=== PATIENT | male | born 1975 | race Hispanic/Latino ===

== ENCOUNTER 2019-12-17 17:59 | Inpatient (IN) | payer OTHER ==
[2019-12-17] MEDS ORDERED: ACETAMINOPHEN 325 MG TABLET ONE (18:48)
[2019-12-17] MEDS ORDERED: HYDROCODONE/APAP 7.5/325 MG TAB ONE (18:49)
[2019-12-17] MEDS ORDERED: NA CHLORIDE 0.9% 2,000 ML ONE (18:49)
[2019-12-17 19:44] LABS: Absolute Lymphocytes (CBC) 0.8 K/uL (0.7-4.9); Basophils % 0.3 % (0-1.3); Lymphocytes % 8.4 % (15.3-44.8); MPV 8.4 fL (7.6-11.3); RBC Red Blood Cell Count 5.81 M/uL (4.33-5.43)
[2019-12-17 19:47] LABS: BUN Blood Urea Nitrogen 10 mg/dL (7-18); Bicarbonate 24 mmol/L (21-32); Glucose Level 107 mg/dL (74-106); Potassium 3.3 mmol/L (3.5-5.1); Sodium Level 137 mmol/L (136-145)
[2019-12-17 19:48] LABS: Protime INR 1.23
[2019-12-17 19:55] LABS: ALT/SGPT 22 U/L (12-78); AST/SGOT 13 U/L (15-37); Albumin 3.6 g/dL (3.4-5.0); Alkaline Phosphatase 75 U/L (45-117); Bilirubin Direct 0.6 mg/dL (0-0.2); Bilirubin Total 1.7 mg/dL (0.2-1.0); Ferritin 335.8 ng/mL (26-388); Lipase 66 U/L (73-393); Protein, Total 7.6 g/dL (6.4-8.2); Troponin (Emerg Dept Use Only) < 0.02 ng/mL (0.0-0.045)
--- NOTE | 2019-12-17 20:26 | EDPHYS ---
Physician Documentation [facility] Name: Efren Burgess Age: 44 yrs Sex: Male : 1975 Arrival Date: 12/17/2019 Time: 18:01 Bed 17 Private MD: ED Physician Thiago Gomez HPI: 12/16 19:51 This 44 yrs old Male presents to ER via EMS with complaints of Shortness Of snw Breath. 19:51 The patient has shortness of breath at rest. Onset: The symptoms/episode began/occurred snw gradually, 1 day(s) ago, pt started running fever to 103 on Monday, had virtual appt with PCP and encouraged to be CoVid 19 tested, pt was tested at [facility] yesterday, no results yet. Pt became SOB and coughing today. Duration: The symptoms are continuous. Associated signs and symptoms: Pertinent positives: non-productive cough, fever, listlessness, fatigue, muscle aches. Severity of symptoms: At their worst the symptoms were moderate severe. The patient has not experienced similar symptoms in the past. as noted. Historical: - Allergies: 18:09 Strawberries; tw2 18:09 Kiwi (Actinidia Chinensis); tw2 - Home Meds: 18:13 Synjardy 5-1,000 mg oral tab 1 tab 2 times per day for Type 2 Diabetes Mellitus tw2 [Active]; 19:57 Tradjenta 5 mg oral tab 1 tab once daily [Active]; sg - PMHx: 19:57 Diabetes - NIDDM; sg - Immunization history:: Adult Immunizations. - Social history:: Smoking status: . ROS: 19:50 Eyes: Negative for injury, pain, redness, and discharge. snw 19:50 Neck: Negative for injury, pain, and swelling, Cardiovascular: Negative for chest pain, palpitations, and edema. 19:50 Abdomen/GI: Negative for abdominal pain, nausea, vomiting, diarrhea, and constipation, Back: Negative for injury and pain, : Negative for injury, bleeding, discharge, and swelling. 19:50 Skin: Negative for injury, rash, and discoloration. 19:50 Psych: Negative for depression, anxiety, suicide ideation, homicidal ideation, and hallucinations. 19:50 Constitutional: Positive for body aches, chills, fatigue, fever, malaise, poor PO intake. 19:50 ENT: Positive for loss of smell and taste per report. 19:50 Respiratory: Positive for cough, shortness of breath, at rest. 19:50 MS/extremity: Positive for generalized pain. 19:50 Neuro: Positive for headache. Exam: 19:47 Head/Face: Normocephalic, atraumatic. Eyes: Pupils equal round and reactive to light, snw extra-ocular motions intact. Lids and lashes normal. Conjunctiva and sclera are non-icteric and not injected. Cornea within normal limits. Periorbital areas with no swelling, redness, or edema. ENT: Nares patent. No nasal discharge, no septal abnormalities noted. Tympanic membranes are normal and external auditory canals are clear. Oropharynx with no redness, swelling, or masses, exudates, or evidence of obstruction, uvula midline. Mucous membranes moist. Neck: Trachea midline, no thyromegaly or masses palpated, and no cervical lymphadenopathy. Supple, full range of motion without nuchal rigidity, or vertebral point tenderness. No Meningismus. Chest/axilla: Normal chest wall appearance and motion. Nontender with no deformity. No lesions are appreciated. 19:47 Abdomen/GI: Soft, non-tender, with normal bowel sounds. No distension or tympany. No guarding or rebound. No evidence of tenderness throughout. Back: No spinal tenderness. No costovertebral tenderness. Full range of motion. 19:47 Constitutional: The patient appears awake, listless, obese, obviously ill, uncomfortable, rigors 19:47 Cardiovascular: Rate: tachycardic, Rhythm: regular, Pulses: no pulse deficits are appreciated, Heart sounds: normal, Edema: is not appreciated. 19:47 Respiratory: the patient does not display signs of respiratory distress, Respirations: shallow respirations, tachypnea, that is moderate, Breath sounds: + upper airway congestion. Respiratory rate: 26 cough and sob started today, SpO2 93-94% room air, O2 placed via N/C at 2L SpO2 97%. 19:47 Skin: Appearance: Color: normal in color, Temperature: hot, Moisture: dry, petechiae, not noted. 19:47 Neuro: listless with chills. Vital Signs: 18:15 BP 112 / 69; Pulse 106; Resp 24; Temp 103.0; Pulse Ox 96% on R/A; ls4 19:24 BP 119 / 76; Pulse 104; Resp 16; Temp 101.3(O); Pulse Ox 93% ; Pain 3/10; ls4 20:15 BP 118 / 77; Pulse 93; Resp 24; Pulse Ox 96% on 2 lpm NC; Pain 2/10; ls4 21:10 BP 104 / 70; Pulse 89; Resp 19; Pulse Ox 96% on 2 lpm NC; Pain 0/10; ls4 22:00 BP 127 / 82; Pulse 82; Resp 14; Temp 98.3; Pulse Ox 100% on R/A; Pain 3/10; ls4 23:00 BP 110 / 67; Pulse 86; Resp 16; Temp 98.6(O); Pulse Ox 96% on 2 lpm NC; Pain 3/10; ls4 19:24 2 liters applied increased to 97 per cent 4 MDM: 19:41 Patient medically screened. snw 20:26 Data reviewed: vital signs, nurses notes, lab test result(s), radiologic studies. Data snw interpreted: Pulse oximetry: on room air is 93 %. Interpretation: hypoxia. Plan: O2 by NC applied. Counseling: I had a detailed discussion with the patient and/or guardian regarding: lab results, radiology results, the need for further work-up and treatment in the hospital. Physician consultation: Stefano Khoury was called at 20:15, was contacted at 20:15, regarding admission, to the medical/surgical unit. and will see patient in ED, shortly. 12/16 18:38 Order name: COVID-19 [facility] 12/16 18:38 Order name: Flu; Complete Time: 20:04 [facility] 12/16 18:38 Order name: Strep; Complete Time: 19:41 [facility] 12/16 19:07 Order name: Blood Culture Adult (2) [facility] 12/16 19:07 Order name: C-Reactive Protein; Complete Time: 20:04 [facility] 12/16 19:07 Order name: D-Dimer; Complete Time: 20:21 [facility] 12/16 19:07 Order name: Ferritin; Complete Time: 20:04 [facility] 12/16 19:07 Order name: Lactate [facility] 12/16 19:07 Order name: LFT's; Complete Time: 20:04 [facility] 12/16 19:07 Order name: Lipase; Complete Time: 20:04 [facility] 12/16 19:07 Order name: Procalcitonin; Complete Time: 20:04 [facility] 12/16 19:07 Order name: PT-INR; Complete Time: 20:21 [facility] 12/16 19:07 Order name: Ptt, Activated; Complete Time: 20:21 [facility] 12/16 19:07 Order name: Troponin (emerg Dept Use Only); Complete Time: 20:04 [facility] 12/16 18:38 Order name: Document PUI#; Complete Time: 21:51 [facility] 12/16 18:38 Order name: Droplet/Contact Precautions; Complete Time: 21:51 [facility] 12/16 18:38 Order name: Labs collected and sent; Complete Time: 21:51 [facility] 12/16 18:38 Order name: Notify [facility] Dept [phone]/ ; Complete Time: 21:51 [facility] 12/16 18:38 Order name: O2 Per Protocol; Complete Time: 21:51 [facility] 12/16 19:07 Order name: CXR XRAY [facility] 12/16 19:07 Order name: EKG; Complete Time: 19:09 [facility] 12/16 19:07 Order name: Cardiac monitoring; Complete Time: 23:45 [facility] 12/16 19:15 Order name: CBC with Diff; Complete Time: 20:12 [facility] 12/16 19:15 Order name: Basic Metabolic Panel; Complete Time: 19:53 [facility] 12/16 19:41 Order name: Throat Culture [facility] 12/16 21:09 Order name: Urine Dipstick--Ancillary (enter results) 12/16 19:07 Order name: EKG - Nurse/Tech; Complete Time: 23:17 [facility] 12/16 19:07 Order name: O2 Per Protocol; Complete Time: 23:44 [facility] 12/16 19:07 Order name: O2 Sat Monitoring; Complete Time: 23:44 [facility] 12/16 19:07 Order name: Urine Dipstick-Ancillary (obtain specimen); Complete Time: 23:44 ls4 Administered Medications: 18:45 Drug: NS 0.9% 1000 ml Route: IV; Rate: 1 bolus; Site: left forearm; snw 20:00 Follow up: IV Status: Completed infusion; IV Intake: 1000ml ls4 18:55 Drug: [place] (7.5 mg-325 mg) 1 tabs Route: PO; snw 19:20 Follow up: Response: No adverse reaction; Marked relief of symptoms ls4 18:55 Drug: Tylenol 650 mg Route: PO; snw 19:20 Follow up: Response: No adverse reaction; Marked relief of symptoms ls4 19:36 Drug: NS 0.9% 1000 ml Route: IV; Rate: 1 bolus; Site: left forearm; snw 20:36 Follow up: IV Status: Completed infusion; IV Intake: 1000ml ls4 Disposition: 12/17 13:22 Co-signature as Attending Physician, Thiago Gomez MD I agree with the assessment and kdr plan of care. Disposition: 12/17/19 20:25 Hospitalization ordered by Stefano Khoury for Observation. Preliminary diagnosis are Fever presenting with conditions classified elsewhere, Shortness of breath, Dehydration. - Bed requested for Telemetry/MedSurg (observation). - Status is Observation. ls4 - Condition is Stable. - Problem is new. - Symptoms have worsened. Signatures: Dispatcher [employer] EDMS Chuy Solorzano RN RN sg Thiago Gomez MD MD kdr Chandni Hurd, SKETCH LINER-C SKETCH LINER-Csnw Maggie Toro, RN RN tl1 Bebe Holloway RN RN tw2 Kellie Cortez, RN RN ls4 Corrections: (The following items were deleted from the chart) 12/16 19:57 18:09 PMHx: Diabetes - IDDM; tw2 21:35 20:25 Hospitalization Ordered by Stefano Khoury for Observation. Preliminary diagnosis tl1 is Fever presenting with conditions classified elsewhere; Shortness of breath; Dehydration. Bed requested for Telemetry/MedSurg (observation). Status is Observation. Condition is Stable. Problem is new. Symptoms have worsened. snw 23:24 21:35 12/17/2019 20:25 Hospitalization Ordered by Stefano Khoury for Observation. ls4 Preliminary diagnosis is Fever presenting with conditions classified elsewhere; Shortness of breath; Dehydration. Bed requested for Telemetry/MedSurg (observation). Status is Observation. Condition is Stable. Problem is new. Symptoms have worsened. tl1
--- NOTE | 2019-12-17 20:26 | ER ---
Nurse's Notes [facility] Name: Efren Burgess Age: 44 yrs Sex: Male : 1975 Arrival Date: 12/17/2019 Time: 18:01 Bed 17 Private MD: Diagnosis: Fever presenting with conditions classified elsewhere;Shortness of breath;Dehydration Presentation: 12/16 18:01 Chief complaint: EMS states: pt from home has had cough, fever, shortness of breath and tw2 got tested Monday for covid, no results yet, he also reports that he has lost his sense of taste. Coronavirus screen: Surgical mask placed on patient. Patient moved to private room, placed in contact and droplet isolation with eye protection until further assessment. Patient reports a cough. Patient reports shortness of breath or difficulty breathing. Patient reports a measured and/or subjective temperature greater than 100.4F. Patient denies travel on a cruise ship or to a country the [facility] currently lists as an affected area. Patient denies contact with known and/or suspected case of COVID-19. Prior COVID test collected on: Monday, December. Ebola Screen: Patient denies travel to an Ebola-affected area in the 21 days before illness onset. Initial Sepsis Screen:. Risk Assessment: Do you want to hurt yourself or someone else? Patient reports no desire to harm self or others. Onset of symptoms was December 17, 2019. 18:01 Method Of Arrival: EMS: [facility] tw2 18:01 Acuity: [place] 1 ls4 18:01 Initial Sepsis Screen: Does the patient meet any 2 criteria? No. Patient's initial ls4 sepsis screen is negative. Does the patient have a suspected source of infection? No. Patient's initial sepsis screen is negative. Care prior to arrival: None. Glucose check: 138. Care prior to arrival: pt states he has been tired all day. Activity prior to arrival: None. 18:03 Chief complaint: EMS states: bgl was 138, pt hx of DM. tw2 18:10 Note pts spouse states he was test yesterday, Monday December 16, 2019 at [facility] tw2 and still no results back, they use [facility] for rx. Triage Assessment: 18:03 General: Appears in no apparent distress. uncomfortable, obese, Behavior is tw2 cooperative, appropriate for age. Pain: Denies pain. Respiratory: Reports shortness of breath at rest on exertion cough that is Onset: The symptoms/episode began/occurred Monday, the patient has mild shortness of breath. Historical: - Allergies: 18:09 Strawberries; tw2 18:09 Kiwi (Actinidia Chinensis); tw2 - Home Meds: 18:13 Synjardy 5-1,000 mg oral tab 1 tab 2 times per day for Type 2 Diabetes Mellitus tw2 [Active]; 19:57 Tradjenta 5 mg oral tab 1 tab once daily [Active]; sg - PMHx: 19:57 Diabetes - NIDDM; sg - Immunization history:: Adult Immunizations. - Social history:: Smoking status: . Screenin:05 Abuse screen: Denies threats or abuse. Denies injuries from another. Nutritional ls4 screening: No deficits noted. Tuberculosis screening: No symptoms or risk factors identified. Fall Risk None identified. Assessment: 18:00 Cardiovascular: Capillary refill < 3 seconds Patient's skin is warm and dry. Rhythm is ls4 regular. Respiratory: Breath sounds are clear bilaterally. GI: Abdomen is non-distended, obese, Bowel sounds present X 4 quads. 18:01 Respiratory: Airway is patent Respiratory effort is even, unlabored, Respiratory ls4 pattern is tachypnea. 18:01 Respiratory: the patient has moderate shortness of breath. ls4 18:03 General: Appears in no apparent distress. uncomfortable, Behavior is calm, cooperative, ls4 quiet. 19:00 Reassessment: Patient appears in no apparent distress at this time. Patient and/or ls4 family updated on plan of care and expected duration. Pain level reassessed. Patient is alert, oriented x 3, equal unlabored respirations, skin warm/dry/pink. Patient states symptoms have improved. 20:00 Reassessment: Patient appears in no apparent distress at this time. Patient and/or ls4 family updated on plan of care and expected duration. Pain level reassessed. Patient is alert, oriented x 3, equal unlabored respirations, skin warm/dry/pink. 21:00 Reassessment: Patient appears in no apparent distress at this time. Patient and/or ls4 family updated on plan of care and expected duration. Pain level reassessed. Patient is alert, oriented x 3, equal unlabored respirations, skin warm/dry/pink. 22:00 Reassessment: Patient appears in no apparent distress at this time. Patient and/or ls4 family updated on plan of care and expected duration. Pain level reassessed. Patient is alert, oriented x 3, equal unlabored respirations, skin warm/dry/pink. Vital Signs: 18:15 BP 112 / 69; Pulse 106; Resp 24; Temp 103.0; Pulse Ox 96% on R/A; ls4 19:24 BP 119 / 76; Pulse 104; Resp 16; Temp 101.3(O); Pulse Ox 93% ; Pain 3/10; ls4 20:15 BP 118 / 77; Pulse 93; Resp 24; Pulse Ox 96% on 2 lpm NC; Pain 2/10; ls4 21:10 BP 104 / 70; Pulse 89; Resp 19; Pulse Ox 96% on 2 lpm NC; Pain 0/10; ls4 22:00 BP 127 / 82; Pulse 82; Resp 14; Temp 98.3; Pulse Ox 100% on R/A; Pain 3/10; ls4 23:00 BP 110 / 67; Pulse 86; Resp 16; Temp 98.6(O); Pulse Ox 96% on 2 lpm NC; Pain 3/10; ls4 19:24 2 liters applied increased to 97 per cent ls4 ED Course: 18:00 Patient has correct armband on for positive identification. Bed in low position. Call ls4 light in reach. Side rails up X 1. quality assurance monitor body on. Pulse ox on. NIBP on. 18:00 Verbal reassurance given. ls4 18:01 Patient arrived in ED. tw2 18:03 Arm band placed on. tw2 18:09 Chandni Hurd FNP-C is PHCP. snw 18:09 Thiago Gomez MD is Attending Physician. snw 18:29 No apparent distress. Nurse Practitioner and/or Physician Plastic Press Operator to see patient. ls4 18:36 Kellie Cortez, SREE is Primary Nurse. ls4 19:00 Initial lab(s) drawn, by ED staff, sent to lab. Flu and/or RSV swab sent to lab. Strep ls4 swab sent to lab. CoVID SWAB CARRIED TO LAB IN COOLER BY CHAIR CAR ATTENDANT. 19:30 No provider procedures requiring assistance completed. Oxygen administration via nasal ls4 cannula \T\ 2L/min. 19:36 Triage completed. ls4 19:47 CXR XRAY In Process Unspecified. EDMS 20:24 Stefano Khoury is Hospitalizing Provider. snw 21:04 EKG done, by ED staff. ls4 23:01 No apparent distress. ls4 23:07 Patient admitted, IV remains in place. ls4 Administered Medications: 18:45 Drug: NS 0.9% 1000 ml Route: IV; Rate: 1 bolus; Site: left forearm; snw 20:00 Follow up: IV Status: Completed infusion; IV Intake: 1000ml ls4 18:55 Drug: [place] (7.5 mg-325 mg) 1 tabs Route: PO; snw 19:20 Follow up: Response: No adverse reaction; Marked relief of symptoms ls4 18:55 Drug: Tylenol 650 mg Route: PO; snw 19:20 Follow up: Response: No adverse reaction; Marked relief of symptoms ls4 19:36 Drug: NS 0.9% 1000 ml Route: IV; Rate: 1 bolus; Site: left forearm; snw 20:36 Follow up: IV Status: Completed infusion; IV Intake: 1000ml ls4 Intake: 20:00 IV: 1000ml; Total: 1000ml. ls4 20:36 IV: 1000ml; Total: 2000ml. ls4 Outcome: 20:25 Decision to Hospitalize by Provider. snw 23:03 Admitted to Tele accompanied by tech, room 413, Report called to SONIA BALBUENA ls4 23:03 Condition: stable 23:03 Instructed on the need for admit, Demonstrated understanding of follow-up care, PRAKASH CALLED AND NOTIFIED OF ADMISSION AND PT STATUS 23:24 Patient left the ED. ls4 Signatures: Dispatcher [employer] EDMS Chuy Solorzano RN SREE sg Chandni Hurd, ENDOCRINOLOGY PHYSICIAN-C ENDOCRINOLOGY PHYSICIAN-Csnw Bebe Holloway RN RN tw2 Kellie Cortez RN RN ls4 Corrections: (The following items were deleted from the chart) 19:24 19:15 BP 112 / 69; Pulse 106bpm; Resp 24bpm; Pulse Ox 96% RA; Temp 103.0F; ls4 ls4 19:41 19:38 Cardiovascular: Rhythm is sinus tachycardia ls4 ls4 19:41 19:38 Respiratory: Airway is patent Respiratory effort is even, unlabored, Respiratory ls4 pattern is tachypnea ls4 19:41 19:38 General: Appears in no apparent distress. uncomfortable, Behavior is calm, ls4 cooperative, quiet, ls4 19:57 18:09 PMHx: Diabetes - IDDM; tw2 sg 22:34 18:00 Reassessment: Patient appears in no apparent distress at this time. Patient ls4 and/or family updated on plan of care and expected duration. Pain level reassessed. Patient is alert, oriented x 3, equal unlabored respirations, skin warm/dry/pink. Patient states symptoms have improved. ls4 23:24 21:04 EKG done, by ED staff, reviewed by Chandni STONE ls4 ls4
--- NOTE | 2019-12-17 20:49 | RAD REPORT ---
EXAM DESCRIPTION: RAD - Chest Single View - 12/17/2019 7:46 pm CLINICAL HISTORY: COUGH COMPARISON: None TECHNIQUE: AP portable chest image was obtained 12/17/2019 7:46 pm . FINDINGS: Lung volumes are low. No acute lung parenchymal process. Heart and vasculature are normal. No measurable pleural effusion and no pneumothorax. No acute bony abnormality seen. No acute aortic findings suspected. IMPRESSION: No acute cardiopulmonary process.
--- NOTE | 2019-12-17 21:08 | P.HP ---
Certification for Inpatient Patient admitted to: Observation With expected LOS: <2 Midnights Practitioner: I am a practitioner with admitting privileges, knowledge of patient current condition, hospital course, and medical plan of care. Services: Services provided to patient in accordance with Admission requirements found in Title 42 Section 412.3 of the Code of Federal Regulations Patient History Date of Service: 12/17/19 Reason for admission: Fever and weakness History of Present Illness: 44-year-old gentleman with a history of diabetes mellitus type 2 presented to the ED with a complaint of fever of 5 days duration along with generalized body aches. Patient stated he started having nonproductive cough yesterday. He reports generalized weakness and body aches to the point he has been having difficulty with ambulation. He also reports poor oral intake. He denied any diarrhea or nausea or vomiting. He went to see his primary care physician will obtained Covid test, result is pending. Blood work in the ED is unremarkable, chest x-ray does not show any infiltrate. Patient generally weak. He is placed under observation for further management. Allergies No Known Allergies Allergy (Verified 12/17/19 23:25) Home Medications: Empagliflozin/Metformin HCl [Synjardy Xr 10-1,000 mg Tablet] 1 each PO DAILY 12/18/19 Linagliptin [Tradjenta] 5 mg PO DAILY 12/18/19 Levofloxacin [Levaquin] 500 mg PO DAILY #10 tablet 12/19/19 - Past Medical/Surgical History Diabetic: Yes -: Diabetes mellitus type 2 - Family History Mother -: Diabetes Father -: Hypertension, Diabetes - Social History Smoking Status: Never smoker Alcohol use: No CD- Drugs: No Place of Residence: Home Review of Systems Other: Except as documented, all other systems reviewed and negative. Physical Examination - Physical Exam General: Alert, In no apparent distress, Oriented x3 HEENT: Mucous membr. moist/pink, Sclerae nonicteric Neck: Supple, JVD not distended Respiratory: Clear to auscultation bilaterally, Normal air movement Cardiovascular: No edema, Regular rate/rhythm Capillary refill: <2 Seconds Gastrointestinal: Normal bowel sounds, Soft and benign, Non-distended, No tenderness Musculoskeletal: No swelling, No erythema Neurological: Normal speech, Normal strength at 5/5 x4 extr - Studies Laboratory Data (last 24 hrs) 12/17/19 18:50: Sodium 137, Potassium 3.3 L, BUN 10, Creatinine 0.72, Glucose 107 H 12/17/19 18:50: WBC 9.2, Hgb 16.0, Hct 48.0, Plt Count 223 12/17/19 18:50: PT 14.4 H, INR 1.23, APTT 32.8 12/17/19 18:50: Total Bilirubin 1.7 H, AST 13 L, ALT 22, Alkaline Phosphatase 75, Lipase 66 L Microbiology Data (last 24 hrs): 12/17/19 18:50 Nasopharnyx Influenza Type A Antigen Screen - Final 12/17/19 18:50 Nasopharnyx Influenza Type B Antigen Screen - Final 12/17/19 18:50 Throat Group A Streptococcus Rapid Screen - Final Assessment and Plan - Problems (Diagnosis) (1) Febrile illness, acute Status: Acute (2) Diabetes mellitus type 2 in obese Status: Acute (3) Hyperbilirubinemia Status: Acute - Plan Place under observation Supportive measures with IV fluids Antipyretics prn I suspect hyperbilirubinemia is likely secondary to hepatic steatosis. Blood cultures Droplet isolation Follow up Covid 19 test result. Supplemental oxygen as needed. - Advance Directives Does patient have a Living Will: No Does patient have a Durable POA for Healthcare: No
[2019-12-17 22:12] LABS: Urine Blood 1+ (NEG); Urine Glucose 2+ (NEG); Urine Protein NEGATIVE (NEG); Urine pH 6.5 (5.0-7.0)
[2019-12-17] MEDS ORDERED: ONDANSETRON 4 MG/2 ML VIAL IV PRN (23:25)
[2019-12-17] MEDS: NA CHLORIDE 0.9% 1,000 ML IV SCH (23:38)
[2019-12-17 23:48] VITALS: BMI 39.4
[2019-12-18] MEDS ORDERED: POTASSIUM 25 MEQ EFFERV TAB PO ONE ×2 (00:49→05:30)
[2019-12-18] MEDS: ACETAMINOPHEN 500 MG TAB PO PRN ×3 (01:15→16:24)
[2019-12-18 04:22] LABS: Absolute Lymphocytes (CBC) 1.1 K/uL (0.7-4.9); Basophils % 0.3 % (0-1.3); Hematocrit 42.6 % (39.6-49.0); Lymphocytes % 14.8 % (15.3-44.8); MPV 8.5 fL (7.6-11.3); RBC Red Blood Cell Count 5.16 M/uL (4.33-5.43)
[2019-12-18 04:49] LABS: ALT/SGPT 21 U/L (12-78); AST/SGOT 13 U/L (15-37); Alkaline Phosphatase 66 U/L (45-117); BUN Blood Urea Nitrogen 11 mg/dL (7-18); Bicarbonate 24 mmol/L (21-32); Bilirubin Total 1.3 mg/dL (0.2-1.0); Glucose Level 102 mg/dL (74-106); Magnesium 1.9 mg/dL (1.8-2.4); Phosphorus 1.4 mg/dL (2.5-4.9); Potassium 3.7 mmol/L (3.5-5.1); Protein, Total 6.6 g/dL (6.4-8.2); Sodium Level 138 mmol/L (136-145); Thyroid Stimulating Hormone 0.613 uIU/mL (0.360-3.740)
[2019-12-18] MEDS: POTASS/SODIUM PHOSPHATE 1 PKT POWD.PACK PO SCH ×3 (05:28→07:23)
[2019-12-18 05:31] LABS: Urine Appearance CLEAR; Urine Blood NEGATIVE (NEG); Urine Color YELLOW; Urine Glucose 3+ (NEG); Urine Protein NEGATIVE (NEG); Urine Specific Gravity >=1.030 (1.005-1.030)
[2019-12-18 05:32] LABS: Urine Microscopic Reflex NO UMIC
[2019-12-18 05:37] LABS: Urine Bilirubin 1+ (NEG)
[2019-12-18] MEDS: NA CHLORIDE 0.9% 1,000 ML IV SCH ×2 (06:19→16:24)
--- NOTE | 2019-12-18 06:53 | EKG ---
Test Date: 2019-12-17 Test Time: 21:04:08 Field Research Associate: HARJEET MEASUREMENT RESULTS: Intervals: Rate: 86 WV: 140 QRSD: 86 QT: 408 QTc: 488 [place]: P: 27 WV: 140 QRS: -4 T: 6 INTERPRETIVE STATEMENTS: Normal sinus rhythm Prolonged QT Abnormal ECG No previous ECG available for comparison Electronically Signed On 12-18-19 06:53:12 CDT by Karthik Decker
[2019-12-18] MEDS: ENOXAPARIN 40 MG/0.4 ML SQ SCH (07:23)
[2019-12-18] MEDS: INSULIN -REGULAR HUMAN 50 UNIT/0.5 ML ML SQ SCH ×4 (07:30→20:32)
[2019-12-18] MEDS: metroNIDAZOLE 500 MG TABLET PO SCH ×2 (12:36→20:32)
[2019-12-18] MEDS: CEFTRIAXONE/SWI 1gm 1 GM/10 ML SYR IV SCH (12:36)
--- NOTE | 2019-12-18 14:52 | P.PN ---
Subjective Date of Service: 12/18/19 Chief Complaint: Fever and weakness Subjective: No new changes, C/O voiced Physical Examination - Vital Signs Temperature: 98.7 F Blood Pressure: 131/76 Pulse: 87 Respirations: 18 Pulse Ox (%): 97 - Physical Exam General: Alert, In no apparent distress, Oriented x3 HEENT: Atraumatic, Normocephalic Neck: Supple, 2+ carotid pulse no bruit, JVD not distended Respiratory: Clear to auscultation bilaterally, Normal air movement Cardiovascular: No edema, Normal pulses, Regular rate/rhythm, Normal S1 S2 Gastrointestinal: Normal bowel sounds, Soft and benign Musculoskeletal: No clubbing, No swelling - Studies Laboratory Data (last 24 hrs) 12/18/19 03:23: Sodium 138, Potassium 3.7, BUN 11, Creatinine 0.56, Glucose 102, Phosphorus 1.4 L, Magnesium 1.9, Total Bilirubin 1.3 H, AST 13 L, ALT 21, Alkaline Phosphatase 66 12/18/19 03:23: WBC 7.4 D, Hgb 14.3, Hct 42.6, Plt Count 194 12/17/19 18:50: Sodium 137, Potassium 3.3 L, BUN 10, Creatinine 0.72, Glucose 107 H 12/17/19 18:50: WBC 9.2, Hgb 16.0, Hct 48.0, Plt Count 223 12/17/19 18:50: PT 14.4 H, INR 1.23, APTT 32.8 12/17/19 18:50: Total Bilirubin 1.7 H, AST 13 L, ALT 22, Alkaline Phosphatase 75, Lipase 66 L Microbiology Data (last 24 hrs): 12/17/19 18:50 Nasopharnyx Coronavirus COVID-19 PCR - Final 12/17/19 18:50 Nasopharnyx Influenza Type A Antigen Screen - Final 12/17/19 18:50 Nasopharnyx Influenza Type B Antigen Screen - Final 12/17/19 18:50 Throat Group A Streptococcus Rapid Screen - Final Assessment And Plan - Current Problems (Diagnosis) (1) Viral syndrome Current Visit: Yes Status: Acute (2) Diabetes mellitus type 2 in obese Current Visit: Yes Status: Acute (3) Hyperbilirubinemia Current Visit: Yes Status: Acute Physician Review: Patient Assessed, Agree with Above Assessment and Plan Physician Review Additional Text: # shortness of breath-likely related to viral pneumonia - covid 19 testing negative Start empirical antibiotics with Rocephin Can Dc droplet isolation. Hyperbilirubinemia-improving, no need for gallbladder ultrasound Continue to monitor level, now down to 1.3 total Febrile Illness -likely due to viral syndrome Continue antipruritics p.r.n. DVT prophylaxis-subcutaneous heparin Dispo possible in next 24 hr if AFebrile Time Spent Managing PTS Care (In Minutes): 30
[2019-12-18 18:46] LABS: Urine Appearance CLOUDY; Urine Bilirubin NEGATIVE (NEG); Urine Blood 3+ (NEG); Urine Color YELLOW; Urine Glucose 2+ (NEG); Urine Protein NEGATIVE (NEG); Urine Specific Gravity <=1.005 (1.005-1.030)
[2019-12-18 19:04] LABS: Urine Microscopic Reflex ORDER UMIC
[2019-12-18 20:10] LABS: Urine Bacteria <20 /HPF (NONE SEEN); Urine Culture Reflex Order NOT NEEDED; Urine RBC <5 /HPF (NONE SEEN)
[2019-12-19] MEDS: ACETAMINOPHEN 500 MG TAB PO PRN (01:15)
[2019-12-19] MEDS: NA CHLORIDE 0.9% 1,000 ML IV SCH ×3 (01:16→12:38)
[2019-12-19 04:45] LABS: Absolute Lymphocytes (CBC) 1.5 K/uL (0.7-4.9); Basophils % 0.5 % (0-1.3); Hematocrit 41.8 % (39.6-49.0); Lymphocytes % 25.1 % (15.3-44.8); RBC Red Blood Cell Count 5.11 M/uL (4.33-5.43)
[2019-12-19 04:58] LABS: ALT/SGPT 25 U/L (12-78); AST/SGOT 16 U/L (15-37); Albumin 2.9 g/dL (3.4-5.0); Alkaline Phosphatase 64 U/L (45-117); BUN Blood Urea Nitrogen 8 mg/dL (7-18); Bicarbonate 25 mmol/L (21-32); Glucose Level 92 mg/dL (74-106); Phosphorus 1.9 mg/dL (2.5-4.9); Potassium 3.5 mmol/L (3.5-5.1); Protein, Total 6.2 g/dL (6.4-8.2); Sodium Level 138 mmol/L (136-145)
[2019-12-19 05:27] LABS: Blood Morphology Comment NOT SEEN (NOT SEEN); Platelet Estimate ADEQ
[2019-12-19] MEDS: INSULIN -REGULAR HUMAN 50 UNIT/0.5 ML ML SQ SCH ×2 (07:30→11:30)
[2019-12-19 08:17] VITALS: O2SAT 95
[2019-12-19] MEDS ORDERED: POTASSIUM 25 MEQ EFFERV TAB PO ONE (09:00)
[2019-12-19] MEDS: POTASS/SODIUM PHOSPHATE 1 PKT POWD.PACK PO SCH ×3 (09:38→10:25)
[2019-12-19] MEDS: ENOXAPARIN 40 MG/0.4 ML SQ SCH (09:40)
[2019-12-19] MEDS: metroNIDAZOLE 500 MG TABLET PO SCH ×2 (09:40→13:53)
[2019-12-19] MEDS: CEFTRIAXONE/SWI 1gm 1 GM/10 ML SYR IV SCH (09:40)
--- NOTE | 2019-12-19 15:12 | P.DS ---
Admission Date: 12/18/19 Discharge Date: 12/19/19 Disposition: ROUTINE DISCHARGE Discharge Condition: FAIR Reason for Admission: Fever and weakness - Problems (1) Viral syndrome Current Visit: Yes Status: Acute (2) Diabetes mellitus type 2 in obese Current Visit: Yes Status: Acute (3) Hyperbilirubinemia Current Visit: Yes Status: Acute Brief History of Present Illness: History of Present Illness: 44-year-old gentleman with a history of diabetes mellitus type 2 presented to the ED with a complaint of fever of 5 days duration along with generalized body aches. Patient stated he started having nonproductive cough yesterday. He reports generalized weakness and body aches to the point he has been having difficulty with ambulation. He also reports poor oral intake. He denied any d iarrhea or nausea or vomiting. He went to see his primary care physician will obtained Covid test, result is pending. Blood work in the ED is unremarkable, chest x-ray does not show any infiltrate. Patient generally weak. He is placed under observation for further management. - Past Medical/Surgical History Diabetic: Yes -: Diabetes mellitus type 2 - Family History Mother -: Diabetes - Social History Smoking Status: Never smoker Alcohol use: No CD- Drugs: No Place of Residence: Home Hospital Course: patient admitted for fever , chills . He was ruled out for Covid infection with negative testing . He was noted with mild elevated bilirubin to 1.7 but improved with hydration to 1.3 . He developed passage of dark urine that spontaneously resolved . UA shows leucoyturia and cx obtained. Patient fever started to improved with empirical anbtitoics use . He was diagnosed with UTI and started on levaquin now . UTI may be due to DM hx . He is expected to follow with his PCP and may need urology eval if recurrent UTI in the future Vital Signs/Physical Exam: Temp Pulse Resp BP Pulse Ox 97.5 F 81 17 130/75 97 12/19/19 12:00 12/19/19 12:00 12/19/19 12:00 12/19/19 12:12/19/19 12:00 General: Alert, In no apparent distress, Oriented x3 HEENT: Atraumatic, Normocephalic, PERRLA Neck: 2+ carotid pulse no bruit, JVD not distended Respiratory: Clear to auscultation bilaterally, Normal air movement Gastrointestinal: Normal bowel sounds, Soft and benign, Non-distended Laboratory Data at Discharge: WBC 6.1 K/uL (4.3-10.9) D 12/19/19 04:25 Hgb 14.3 g/dL (13.6-17.9) 12/19/19 04:25 Hct 41.8 % (39.6-49.0) 12/19/19 04:25 Plt Count 202 K/uL (152-406) 12/19/19 04:25 PT 14.4 SECONDS (9.5-12.5) H 12/17/19 18:50 INR 1.23 12/17/19 18:50 APTT 32.8 SECONDS (24.3-36.9) 12/17/19 18:50 Sodium 138 mmol/L (136-145) 12/19/19 04:25 Potassium 3.5 mmol/L (3.5-5.1) 12/19/19 04:25 BUN 8 mg/dL (7-18) 12/19/19 04:25 Creatinine 0.61 mg/dL (0.55-1.3) 12/19/19 04:25 Glucose 92 mg/dL (74-106) 12/19/19 04:25 Phosphorus 1.9 mg/dL (2.5-4.9) L 12/19/19 04:25 Magnesium 1.9 mg/dL (1.8-2.4) 12/18/19 15:55 Total Bilirubin 1.0 mg/dL (0.2-1.0) 12/19/19 04:25 AST 16 U/L (15-37) 12/19/19 04:25 ALT 25 U/L (12-78) 12/19/19 04:25 Alkaline Phosphatase 64 U/L (45-117) 12/19/19 04:25 Lipase 66 U/L (73-393) L 12/17/19 18:50 Home Medications: Empagliflozin/Metformin HCl [Synjardy Xr 10-1,000 mg Tablet] 1 each PO DAILY 12/18/19 Linagliptin [Tradjenta] 5 mg PO DAILY 12/18/19 Levofloxacin [Levaquin] 500 mg PO DAILY #10 tablet 12/19/19 New Medications: Levofloxacin [Levaquin] 500 mg PO DAILY #10 tablet Patient Discharge Instructions: - follow up with your PCP in 5-7 days. - You ma y need imaging of your urinary tract if persistent symptoms. - Return to the ER if recurrent fever Diet: ADA Activity: Ad duke Time spent managing pt's care (in minutes): 35
[2019-12-19 17:24] VITALS: BP 126/67; TEMP 97.1
== END 2019-12-19 16:29 | disposition home or self-care (01) | DRG 690 ==
LOC: ER 17:59 → ERHOLD 21:10 → 4TH 22:33 → OBSVTOIN 12-18 09:39 → 4TH 12-18 11:57 → 2ND 12-18 17:50
PROVIDERS: ADMIT Internal Medicine; ATTEND Internal Medicine
PROC: 8E0ZXY6 Isolation (ICD-10-PCS; principal; 2019-12-18)
DX: N39.0 Urinary tract infection, site not specified (principal); E11.9 Type 2 diabetes mellitus without complications; E80.6 Other disorders of bilirubin metabolism; E66.9 Obesity, unspecified; B34.9 Viral infection, unspecified; R05 Cough; R50.9 Fever, unspecified; R06.02 Shortness of breath; Z68.39 Body mass index [BMI] 39.0-39.9, adult; Z79.84 Long term (current) use of oral hypoglycemic drugs; Z20.828 Contact with and (suspected) exposure to other viral communicable diseases; Z79.899 Other long term (current) drug therapy
CPT/HCPCS: 36415; 71045; 80048; 80053; 80076; 81003; 81015; 82728; 82947; 83605; 83690; 83735; 84100; 84145; 84443; 84484; 85025; 85379; 85610; 85730; 86140; 87040; 87070; 87081; 87086; 87088; 87804; 93005; 96360; 96361; 99291; 99292; G0378; J0696; J1650; J7030; U0002

== ENCOUNTER 2021-12-10 12:54 | Emergency (ER) | payer OTHER ==
--- OUTSIDE RECORDS SUMMARY | 2021-12-10 12:58 | XMS REPORT | Continuity of Care Document ---
:1975 Author Organization [facility] t Address [address] [place] [address] Care Team Providers Name Role Phone Love Saumels MD Primary Care Physician Chino Castillo MD Attending Clinician Love Samuels MD Attending Clinician Mor Petersen MD Attending Clinician Jose Guadalupe CUNHA Attending Clinician MADDIE Attending Clinician Unavailable Donavon REGALADO Attending Clinician Tian MONIQUE R Attending Clinician Unavailable MD MOR PETERSEN Attending Clinician Unavailable ONEIL Attending Clinician Unavailable Martha Stover Attending Clinician Doctor Unassigned, Name Attending Clinician Unavailable MARLEN Admitting Clinician Unavailable MD MOR PETERSEN Admitting Clinician Unavailable Payers Payer Name Policy Type Policy Number Effective Date Expiration Date S ource Problems Condition Condition Condition Status Onset Resolution Last Treating Co mments Source Name Details Category Date Date Treatment Clinician Date Plantar Plantar Disease Active Methodi fasciitis, fasciitis, 9- st left left 00:00: Hospita 00 l Abnormal Abnormal Disease Active Metho di urinalysis urinalysis 09-10 00:00: Hospita 00 l 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 09-10 00:00: Hospita 00 l History of History of Disease Active M ethodi Fileomn-en-Y Filemon-en-Y 1-04 st gastric gastric 00:00: Hospita bypass bypass 00 l Class 3 Class 3 Disease Active Methodi severe severe 01-13 st obesity obesity 00:00: Hospita due to due to 00 l excess excess calories calories with with serious serious comorbidit comorbidit y and body y and body mass index mass index (BMI) of (BMI) of 40.0 to 40.0 to 44.9 in 44.9 in adult adult SUHAIL SUHAIL Disease Active Methodi (obstructi (obstructi 01-13 st ve sleep ve sleep 00:00: Hospit a apnea) apnea) 00 l Pyelonephr Pyelonephr Disease Active M ethodi itis itis 01-13 st 00:00: Hospita 00 l 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 [address] 0 [address] mellitus mellitus 00:00: Hospit a with with 00 l hyperglyce hyperglyce dirk, dirk, without without long-term long-term current current use of use of insulin insulin Muscle Muscle Disease Active 2017-07 Methodi strain strain 2-17 st 00:00: Hospita 00 l Hyperlipid Hyperlipid Disease Recurre Methodi emia emia nce st Hospita l No known No known Disease Unive rs active active ity of problems problems [facility] Allergies, Adverse Reactions, Alerts Allergy Allergy Status Severity Reaction(s) Onset Inactive Treating Comm ents Source Name Type Date Date Clinician Marika Robertson Active Other (See 2019-07 Urine Me thodi chalinon ty to Comments) 0-[address] adverse 00:00: Hospita reaction 00 l s to drug Metformi Propensi Active GI Method i n ty to Intolerance 01-13 st adverse 00:00: Hospita reaction 00 l s to drug Family History Family Member Diagnosis Comments Start Date Stop Date Source Natural father Diabetes [facility] Natural [facility] Natural mother Diabetes [facility] Social History Social Habit Start Date Stop Date Quantity Comments Source History SDOH Religion Alcohol Frequency Hospita l History SDOH Religion Alcohol Std Hospital Drinks History SDOH Religion Alcohol Binge Hospital Alcohol intake 2021-04-06 2021-04-06 Ex-drinker Religion 00:00:00 00:00:00 (finding) Hospital Alcohol Comment 2020-06-30 2020-06-30 rarely Religion 00:00:00 00:00:00 Hospital Tobacco use and 2018-06-25 2018-06-25 Smokeless tobacco Me [facility]odist exposure 00:00:00 00:00:00 non-user Hospital Sex Assigned At [birth year] FARIBA [place] 00:[facility]:00 [facility]00 [facility] Smoking Status Start Date Stop Date Source Never smoked tobacco Religion H ospital Medications Ordered Filled Start Stop Current Ordering Indication Dosage Frequency Signature Comments Components Source Medication Medication Date Date Medication? Clinician (SIG) Name Name omeprazole 2020- No 40mg QD Take 40 mg Methodi (PriLOSEC) 04-[address] 40 MG 13:23: 00:00 daily. Hospita capsule 41 :00 l ursodioL 2020- No 300mg Q.5D Take 300 Met hodi (ACTIGALL) 04-[address] 300 mg 13:23: 00:00 mouth 2 Hospita capsule 41 :00 (two) l times a day. omeprazole No 40mg QD Take 40 mg Methodi (PriLOSEC) 04-[address] 40 MG 13:23: 00:00 daily. Hospita capsule 41 :00 l ursodioL 2020- No 300mg Q.5D Take 300 Met hodi (ACTIGALL) 04-[address] 300 mg 13:23: 00:00 mouth 2 Hospita capsule 41 :00 (two) l times a day. ergocalcife 0 Yes Method i rol 04-04 st (VITAMIN 00:00: Hospita D2) 50,000 00 l unit capsule ergocalcife 2020-0 Yes Method i rol 04-04 st (VITAMIN 00:00: Hospita D2) 50,000 00 l unit capsule multivit-mi 0 Yes Q.5D Take by Met hodi n/iron/foli 04-[address] c acid/K 14:33: (two) Hospita (BARIATRIC 44 times a l MULTIVITAMI day. NS ORAL) CALCIUM Yes Take by Methodi CITRATE 04-[address] ORAL 14:33: Hospita 44 l multivit-mi 2020-0 Yes Q.5D Take by Met hodi n/iron/foli 9-[address] c acid/K 14:33: (two) Hospita (BARIATRIC 44 times a l MULTIVITAMI day. NS ORAL) CALCIUM Yes Take by Methodi CITRATE 04-[address] ORAL 14:33: Hospita 44 l predniSONE 2020- No [id number] Take 2 Methodi (DELTASONE) 04-[address] 10 mg 00:00: 04:59 (20 mg Hospita tablet 00 :00 total) by l mouth daily for 7 days, THEN 1 tablet (10 mg total) daily for 7 days. predniSONE 2020- No [id number] Take 2 Methodi (DELTASONE) 04-[id number] 10 mg 00:00: 04:59 (20 mg Hospita tablet 00 :00 total) by l mouth daily for 7 days, THEN 1 tablet (10 mg total) daily for 7 days. Rhofade 1 % Yes Method i cream 03-05 st 00:00: Hospita 00 l Rhofade 1 % Yes Method i cream 03-05 st 00:00: Hospita 00 l ondansetron 2019-07- No 4mg Q6H Take 1 Met hodi (ZOFRAN) 4 08-23 tablet (4 st MG tablet 00:00: 00:00 mg total) Ho spita 00 :00 by mouth l every 6 (six) hours as needed for nausea or vomiting. ondansetron 2019-07 No 4mg Q6H Take 1 Met hodi (ZOFRAN) 4 08-23 tablet (4 st MG tablet 00:00: 00:00 mg total) Ho spita 00 :00 by mouth l every 6 (six) hours as needed for nausea or vomiting. omeprazole 2019-07- No 40mg QD Take 1 Meth zaria (PriLOSEC) 08-[address] 40 MG 00:00: 04:59 (40 mg Hospita capsule 00 :00 total) by l mouth daily for 180 days. ursodioL 2019-07- No 300mg Q.5D Take 1 Metho di (ACTIGALL) 08-[address] 300 mg 00:00: 04:59 (300 mg Hospita capsule 00 :00 total) by l mouth 2 (two) times a day for 180 days. omeprazole 2019-07 No 40mg QD Take 1 Meth zaria (PriLOSEC) 08-[address] 40 MG 00:00: 04:59 (40 mg Hospita capsule 00 :00 total) by l mouth daily for 180 days. ursodioL 2019-07 No 300mg Q.5D Take 1 Metho di (ACTIGALL) 08-[address] 300 mg 00:00: 04:59 (300 mg Hospita capsule 00 :00 total) by l mouth 2 (two) times a day for 180 days. amoxicillin Yes [id number] 1{tbl} Take 1 Univers -clavulanat 5-15 tablet by ity of e 00:00: mouth 2 [place] (AUGMENTIN) 00 (two) Medical 875-125 mg times Branch per tablet daily. amoxicillin Yes [id number] 1{tbl} Take 1 Univers -clavulanat 5-15 tablet by ity of e 00:00: mouth 2 [place] (AUGMENTIN) 00 (two) Medical 875-125 mg times Branch per tablet daily. amoxicillin Yes [id number] 1{tbl} Take 1 Univers -clavulanat 5-15 tablet by ity of e 00:00: mouth 2 [place] (AUGMENTIN) 00 (two) Medical 875-125 mg times Branch per tablet daily. amoxicillin Yes [id number] 1{tbl} Take 1 Univers -clavulanat 5-15 tablet by ity of e 00:00: mouth 2 [place] (AUGMENTIN) 00 (two) Medical 875-125 mg times Branch per tablet daily. Immunizations Ordered Immunization Filled Immunization Date Status Commen ts Source Name Name FLUCELVAX QUAD PF 2021-04-[address] 00:00:00 Hospital FLUCELVAX QUAD PF 2021-04-[address] 00:00:00 [facility] JENNY COVID-19 AD26 2020-12-22 Completed Met hodist VACCINATION 00:00:00 [facility] JENNY COVID-19 AD26 2020-12-22 Completed Met hodist VACCINATION 00:00:00 [facility] Tdap 2020-04-15 Completed Religion 00:00:00 [facility] FLUBLOK QUAD PF 2020-04-15 Completed Religion 00:00:00 Hospital Pneumococcal 2020-04-15 Completed Religion Polysaccharide 00:00:00 Hospital Tdap 2020-04-15 Completed Religion 00:00:00 Hospital MIGUEL QUAD PF 2020-04-15 Completed Religion 00:00:00 Hospital Pneumococcal 2020-04-15 Completed Religion Polysaccharide 00:00:00 [facility] KESHAV QUAD PF 2019-04-08 Completed Religion 00:00:00 Hospital KESHAV QUAD PF 2019-04-08 Completed Religion 00:00:00 Hospital Vital Signs Vital Name Observation Time Observation Value Comments Source Systolic blood 2019-03-12 16:03:00 128 mm[Hg] Univer sity of pressure [facility] Diastolic blood 2019-03-12 16:03:00 82 mm[Hg] Unive rsity [facility] Heart rate 2019-03-12 16:03:00 115 /min [facility] Body temperature 2019-03-12 16:03:00 36.72 Aparna [facility] Respiratory rate 2019-03-12 16:03:00 18 /min [facility] Body height 2019-03-12 16:03:00 180.3 cm [facility] Body weight 2019-03-12 16:03:00 125.845 kg [facility] BMI 2019-03-12 16:03:00 38.71 kg/m2 [facility] Oxygen saturation in 2019-03-12 16:03:00 93 /min [facility] blood by [facility] Pulse oximetry [place] Body height 2021-04-06 18:21:00 175.3 cm [facility] Body weight 2021-04-06 18:21:00 107.956 kg [facility] BMI 2021-04-06 18:21:00 35.15 kg/m2 [facility] Systolic blood 2021-04-02 19:32:00 120 mm[Hg] Method ist [facility] pressure Diastolic blood 2021-04-02 19:32:00 85 mm[Hg] [facility] pressure Heart rate 2021-04-02 19:32:00 77 /min [facility] Body temperature 2021-04-02 19:32:00 36.61 Aparna Meth odist [facility] Respiratory rate 2021-04-02 19:32:00 20 /min [facility] Oxygen saturation in 2021-04-02 19:32:00 97 /min [facility] Arterial blood by Pulse oximetry Procedures Procedure Date / Time Performing Clinician Source Performed COMPREHENSIVE METABOLIC 2021-05-28 14:17:00 [facility] PANEL LIPID PANEL 2021-05-28 14:17:00 [facility] TOTAL IRON BINDING 2021-05-28 14:17:00 [facility] CAPACITY T4, FREE 2021-05-28 14:17:00 [facility] THYROID STIMULATING 2021-05-28 14:17:00 [facility] HORMONE HEMOGLOBIN A1C 2021-05-28 14:17:00 [facility] PARATHYROID HORMONE 2021-05-28 14:17:00 [facility] CBC WITH PLATELET AND 2021-05-28 14:17:00 [facility] DIFFERENTIAL VITAMIN A LEVEL, PLASMA OR 2021-05-28 14:17:00 [facility] SERUM VITAMIN B12 LEVEL 2021-05-28 14:17:00 [facility] VITAMIN D 25 HYDROXY LEVEL 2021-05-28 14:17:00 [facility] COPPER LEVEL, SERUM 2021-05-28 14:17:00 [facility] FOLATE LEVEL 2021-05-28 14:17:00 [facility] FERRITIN LEVEL 2021-05-28 14:17:00 [facility] VITAMIN B1 LEVEL, WHOLE 2021-05-28 14:17:00 [facility] BLOOD ZINC LEVEL, SERUM 2021-05-28 14:17:00 [facility] T3 2021-05-28 14:17:00 [facility] XR CALCANEUS 2+ VW LEFT 2021-04-02 21:35:00 [facility] CARLINE SCRN,IFA,REF 2021-04-02 20:46:00 [facility] TITER/PAT,REF,MPLX 11 AB CASCADE W/IDENTRA URIC ACID LEVEL 2021-04-02 20:46:00 [facility] SEDIMENTATION RATE 2021-04-02 20:46:00 [facility] CBC WITH PLATELET AND 2021-04-02 20:46:00 [facility] DIFFERENTIAL C-REACTIVE PROTEIN 2021-04-02 20:46:00 [facility] FLUCELVAX QUAD PF (0.5ML 2021-04-02 20:43:00 [facility] SYRINGE) COMPREHENSIVE METABOLIC 2020-12-11 12:51:00 [facility] PANEL LIPID PANEL 2020-12-11 12:51:00 [facility] TOTAL IRON BINDING 2020-12-11 12:51:00 [facility] CAPACITY T4, FREE 2020-12-11 12:51:00 [facility] THYROID STIMULATING 2020-12-11 12:51:00 [facility] HORMONE HEMOGLOBIN A1C 2020-12-11 12:51:00 [facility] PARATHYROID HORMONE 2020-12-11 12:51:00 [facility] CBC WITH PLATELET AND 2020-12-11 12:51:00 [facility] DIFFERENTIAL VITAMIN A LEVEL, PLASMA OR 2020-12-11 12:51:00 [facility] SERUM VITAMIN B12 LEVEL 2020-12-11 12:51:00 [facility] VITAMIN D 25 HYDROXY LEVEL 2020-12-11 12:51:00 [facility] COPPER LEVEL, SERUM 2020-12-11 12:51:00 [facility] FOLATE LEVEL 2020-12-11 12:51:00 [facility] FERRITIN LEVEL 2020-12-11 12:51:00 [facility] VITAMIN B1 LEVEL, WHOLE 2020-12-11 12:51:00 [facility] BLOOD ZINC LEVEL, SERUM 2020-12-11 12:51:00 [facility] T3 2020-12-11 12:51:00 [facility] COMPREHENSIVE METABOLIC 2020-09-28 13:48:00 [facility] PANEL LIPID PANEL 2020-09-28 13:48:00 [facility] TOTAL IRON BINDING 2020-09-28 13:48:00 [facility] CAPACITY T4, FREE 2020-09-28 13:48:00 [facility] THYROID STIMULATING 2020-09-28 13:48:00 [facility] HORMONE HEMOGLOBIN A1C 2020-09-28 13:48:00 [facility] PARATHYROID HORMONE 2020-09-28 13:48:00 [facility] CBC WITH PLATELET AND 2020-09-28 13:48:00 [facility] DIFFERENTIAL VITAMIN A LEVEL, PLASMA OR 2020-09-28 13:48:00 [facility] SERUM VITAMIN B12 LEVEL 2020-09-28 13:48:00 [facility] VITAMIN D 25 HYDROXY LEVEL 2020-09-28 13:48:00 [facility] COPPER LEVEL, SERUM 2020-09-28 13:48:00 [facility] FOLATE LEVEL 2020-09-28 13:48:00 [facility] FERRITIN LEVEL 2020-09-28 13:48:00 [facility] VITAMIN B1 LEVEL, WHOLE 2020-09-28 13:48:00 [facility] BLOOD ZINC LEVEL, SERUM 2020-09-28 13:48:00 [facility] T3 2020-09-28 13:48:00 [facility] REFLEXIVE URINE CULTURE 2020-09-10 16:10:00 Davi Raphael [facility] URINALYSIS, COMPLETE, WITH 2020-09-10 16:10:00 Alejandro Raphael [facility] REFLEX TO CULTURE NO SHOW OR MISSED 2019-03-12 15:40:03 Doctor Unassigned, [facility] APPOINTMENT POLICY [place] [facility] ACKNOWLEDGEMENT Plan of Care Planned Activity Planned Date Details Comments Source Future Scheduled 2021-08-10 Hepatitis C screening [facility] Test 23:46:52 (procedure) [code = 754333919] Future Scheduled 2021-08-10 COVID-19 VACCINE (2 - [facility] Hospital Test 23:46:52 Booster for Jenny series) [code = COVID-19 VACCINE (2 - Booster for Jenny series)] Future Scheduled 2021-08-10 DIABETIC FOOT EXAM [facility] Hospital Test 23:46:52 [code = DIABETIC FOOT EXAM] Future Scheduled 2021-08-10 URINE MICROALBUMIN [facility] Hospital Test 23:46:52 [code = URINE MICROALBUMIN] Future Scheduled 2021-08-10 DIABETES: RETINAL EYE Me [facility] Hospital Test 23:46:52 EXAM [code = DIABETES: RETINAL EYE EXAM] Future Scheduled 2021-08-10 Hepatitis C screening [facility] Test 23:46:52 (procedure) [code = 666500619] Future Scheduled 2021-08-10 COVID-19 VACCINE (2 - Me [facility] Hospital Test 23:46:52 Booster for Jenny series) [code = COVID-19 VACCINE (2 - Booster for Jenny series)] Future Scheduled 2021-08-10 DIABETIC FOOT EXAM [facility] Hospital Test 23:46:52 [code = DIABETIC FOOT EXAM] Future Scheduled 2021-08-10 URINE MICROALBUMIN [facility] Hospital Test 23:46:52 [code = URINE MICROALBUMIN] Future Scheduled 2021-08-10 DIABETES: RETINAL EYE Me [facility] Hospital Test 23:46:52 EXAM [code = DIABETES: RETINAL EYE EXAM] Encounters Start End Encounter Admission Attending Care Care Encounter Source Date/Time Date/Time Type Type Clinicians Facility Department ID 2021-04-06 2021-04-06 Office [facility], 1.2.840.1 [id number] Methodi 13:07:54 13:48:34 Visit Matt 96333.1.[address] [place] 3.430.2.7 Hospi ta .3.607309 l .8 2021-04-06 2021-04-06 Travel 1.2.840.1 1.2.578.452 [id number] Methodi 00:00:00 00:00:[address] 3.430.2.7 0.2.7.3.698 Ho spita .3.346558 084.8 l .8 2021-04-02 2021-04-02 [facility], 1.2.840.1 [id number] Methodi 15:15:00 23:59:00 Encounter John Aleman 02592.1.[address] 3.430.2.7 Hospit a .3.307451 l .8 2021-04-02 2021-04-02 Office [facility], 1.2.840.1 [id number] 2099 [id number] Methodi 14:25:42 15:36:41 Visit John Aleman 94666.1.[address] 3.430.2.7 Hospit a .3.590890 l .8 2021-04-02 2021-04-02 [facility], 1.2.840.1 [id number] 2099 [id number] Methodi 00:00:00 00:00:00 Only John Aleman 02470.1.[address] 3.430.2.7 Hospit a .3.835849 l .8 2021-04-02 2021-04-02 Travel 1.2.840.1 1.2.299.737 [id number] Methodi 00:00:00 00:00:[address] 3.430.2.7 0.2.7.3.698 Ho spita .3.900825 084.8 l .8 2021-03-31 2021-03-31 Office Petersen, 1.2.840.1 [id number] 2099 [id number] Methodi 15:27:00 15:53:23 Visit Jimi Juares 89041.1.1 989 s t 3.430.2.7 Hospit a .3.495431 l .8 2021-03-31 2021-03-31 Travel 1.2.840.1 1.2.581.800 [id number] Methodi 00:00:00 00:00:[address] 3.430.2.7 0.2.7.3.698 Ho spita .3.319647 084.8 l .8 2021-01-10 2021-01-10 Refill Petersen, 1.2.840.1 [id number] 2099 [id number] Methodi 00:00:00 00:00:00 Jimi Juares 96989.1.1 090 s t 3.430.2.7 Hospit a .3.250229 l .8 2021-01-06 2021-01-06 Refill Petersen, 1.2.840.1 [id number] 2099 [id number] Methodi 00:00:00 00:00:00 Jimi Juares 85417.1.1 565 s t 3.430.2.7 Hospit a .3.163539 l .8 2020-12-30 2020-12-30 Office Eugeniore, 1.2.840.1 [id number] 2099 [id number] Methodi 16:24:05 16:48:34 Visit Alem 71441.1.[address] 3.430.2.7 Hospit a .3.754193 l .8 2020-12-30 2020-12-30 Travel 1.2.840.1 1.2.798.334 7550 [id number] Methodi 00:00:00 00:00:[address] 3.430.2.7 0.2.7.3.698 Ho spita .3.225037 084.8 l .8 2020-10-02 2020-10-02 Outpatient [facility] [id number] [place] 00:00:00 00:00:00 PETER [address] 2020-10-02 2020-10-02 Travel 1.2.840.1 1.2.611.623 [id number] Methodi 00:00:00 00:00:[address] 3.430.2.7 0.2.7.3.698 Ho spita .3.741618 084.8 l .8 2020-09-30 2020-09-30 Office Jose Guadalupe, 1.2.840.1 [id number] [id number] Methodi 09:30:42 09:53:25 Visit Alem 73030.1.[address] 3.430.2.7 Hospit a .3.576967 l .8 2020-09-30 2020-09-30 Travel 1.2.840.1 1.2.690.820 1763 [id number] Methodi 00:00:00 00:00:[address] 3.430.2.7 0.2.7.3.698 Ho spita .3.719090 084.8 l .8 2020 2020 Refill Abril, 1.2.840.1 [id number] 2099 [id number] Methodi 00:00:00 00:00:00 John Aleman 06175.1.[address] 3.430.2.7 Hospit a .3.429085 l .8 2020-09-10 2020-09-10 Office TeodoroJohn rosa 1.2.840.1 [id number] Methodi 09:43:10 10:08:42 Visit Davi Raphael 41257.1.[address] 3.430.2.7 Hospit a .3.355924 l .8 2020-09-10 2020-09-10 Travel 1.2.840.1 1.2.377.163 5775 [id number] Methodi 00:00:00 00:00:[address] 3.430.2.7 0.2.7.3.698 Ho spita .3.423609 084.8 l .8 2020-08-12 2020-08-12 Orders Harmourafiq, 1.2.840.1 [id number] 2099 [id number] Methodi 00:00:00 00:00:00 Only John Aleman 37622.1.[address] 3.430.2.7 Hospit a .3.168930 l .8 2020-08-11 2020-08-11 Telephone [place], 1.2.840.1 [id number] 2099 [id number] Methodi 00:00:00 00:00:00 Amanda Keith 42242.1.1 283 s t 3.430.2.7 Hospit a .3.414995 l .8 2020-08-06 2020-08-06 Outpatient PERKINS, [facility] [id number] [place] 00:00:00 00:00:00 PARDEEP [address] 2020-08-06 2020-08-06 Outpatient HARMOUCH, [facility] [id number] [place] 00:00:00 00:00:00 JOHN Menendez [facility] 2020-08-05 2020-08-05 Outpatient [facility] [id number] [place] 00:00:00 00:00:[address] 2020-07-13 2020-07-13 Outpatient PETERSEN, [facility] [id number] [place] 00:00:00 00:00:00 JIMI [address] 2020-07-06 2020-07-07 Inpatient PETERSEN, [facility] 021 [id number] [place] 00:00:00 00:00:00 JIMI [address] 2020-07-01 2020-07-01 Outpatient PETERSEN, [facility] [id number] [place] 00:00:00 00:00:00 JIMI [address] 2020-06-30 2020-06-30 Outpatient PETERSEN, [facility] [id number] [place] 00:00:00 00:00:00 JIMI [address] 2020-06-22 2020-06-22 Outpatient PETERSEN, [facility] [id number] [place] 00:00:00 00:00:00 JIMI [address] 2020-06-11 2020-06-11 Outpatient PETERSEN, [facility] [id number] [place] 00:00:00 00:00:00 JIMI [address] 2020-06-08 2020-06-08 Outpatient PETERSEN, [facility] [id number] [place] 00:00:00 00:00:00 JIMI [address] 2020-06-01 2020-06-01 Outpatient PETERSEN, [facility] [id number] [place] 00:00:00 00:00:00 JIMI [address] 2020-05-12 2020-05-12 Outpatient PETERSEN, [facility] [id number] [place] 00:00:00 00:00:00 JIMI [address] 2020-05-12 2020-05-12 Outpatient PETERSEN, [facility] [id number] [place] 00:00:00 00:00:00 JIMI [address] 2020-05-06 2020-05-06 Outpatient PETERSEN, [facility] [id number] [place] 00:00:00 00:00:00 JIMI [address] 2020-04-15 2020-04-15 Outpatient HARMOUCH, [facility] [id number] [place] 00:00:00 00:00:00 MANAR [address] 2020-03-03 2020-03-03 Outpatient AHMED, [facility] [id number] [place] 00:00:00 00:00:00 RAZIUDDIN [address] 2020-01-29 2020-01-29 Outpatient HARMOUCH, [facility] [id number] [place] 00:00:00 00:00:00 MANAR [address] 2020-01-14 2020-01-14 Outpatient HARMOUCH, [facility] [id number] [place] 00:00:00 00:00:00 MANAR [address] 2019-03-12 2019-03-12 Office Falguni [facility] 1.2.840.114 [id number] [facility] 10:40:20 11:25:52 Visit Tiera BHAKTA 350.1.13.10 [place] [id number] Ia dical AND ADULT [address] [facility] 2019-03-12 2019-03-12 Orders Doctor TY 1.2.840.114 [id number] Univers 00:00:00 00:00:00 Only Unassigned, IZABELA 350.1.13.10 ity of [facility] [facility] 4.2.7.2.686 W[place]o as [id number] [place] [address] Branch Results Test Description Test Time Test Comments Results Result Comments Source Comprehensive metabolic panel 2021-06-06 03:26:00 Test Item Value Reference Range Interpretation Comme nts Glucose (test code = 96 mg/dL 65-99 Fasting 2345-7) reference inter jamila BUN (test code = 3094-0) 10 mg/dL 7-25 Creatinine (test code = 0.66 mg/dL 0.60-1.35 2160-0) EGFR Non-Afr. Burmese See_Comment [Aut omated message] (test code = 2775) The syste m which generated this result transmitted ref erence range: > OR = 6 0 mL/min/1.73m2. The reference range was not used to interpr et this result as normal/abnormal . EGFR See_Comment [Auto mated message] (test code = 2774) The syste m which generated this result transmitted ref erence range: > OR = 6 0 mL/min/1.73m2. The reference range was not used to interpr et this result as normal/abnormal . BUN/creatinine ratio NOT APPLICABLE See_Comment [Aut omated message] (test code = 3097-3) The sys tem which generated this result transmitted ref erence range: 6 - 22 ( calc). The reference r sony was not used to int erpret this result as normal/abnormal . Sodium (test code = 142 mmol/L 873-316 3562-2) Potassium (test code = 4.1 mmol/L 3.5-5.3 2823-3) Chloride (test code = 107 mmol/L 98-110 2075-0) CO2 (test code = 2027-) 30 mmol/L 20-32 Calcium (test code = 9.0 mg/dL 8.6-10.3 40874-3) Protein (test code = 6.4 g/dL 6.1-8.1 2885-2) Albumin, S (test code = 4.1 g/dL 3.6-5.1 1751-7) Globulin, total (test See_Comment [Auto mated message] code = 06924-8) The system w [facility] generated this result transmitted ref erence range: 1.9 - 3. 7 g/dL (calc). The ref erence range was not u sed to interpret this result as normal/abnor mal. Albumin/globulin ratio See_Comment [Aut omated message] (test code = 1759-0) The sys tem which generated this result transmitted ref erence range: 1.0 - 2. 5 (calc). The ref erence range was not u sed to interpret this result as normal/abnor mal. Total bilirubin (test 1.0 mg/dL 0.2-1.2 code = 1975-2) Alkaline phosphatase 101 U/L 36-130 (test code = 6768-6) AST (test code = 1920-8) 16 U/L 10-40 ALT (test code = 1742-6) 21 U/L 9-46 SAGAR (test code = SAGAR) FASTING:YES FASTING: YES RAC (test code = RAC) Performing Organization Information: Site ID: RGA Name: [facility] Address: [address] [place] [phone] Director: Roland Villareal [facility] CenterLipid [id number] 03:26:00 Test Item Value Reference Range Interpretation Comments Cholesterol, total 121 mg/dL <200 (test code = 2093-3) HDL cholesterol 50 mg/dL See_Comment [Automated (test code = 2085-9) message ] The system which generated this result transmitted reference range : > OR = 40. The reference range was not used to interpret this result as normal/abnormal . Triglycerides (test 80 mg/dL <150 code = 2571-8) LDL cholesterol mg/dL (calc) Reference ra nge: calculated (test <100 Desira ble code = 72029-9) range <100 m g/dL for primary prevention; <7 0 mg/dL for patients with C HD or diabetic patients with > or = 2 CHD risk factors. LDL-C is now calculated using the Kaykay calculation, which is a validated novel method providin g better accuracy than the Friedewald equation in the estimation of LDL-C. Enzo S S et al. YUSUF. 2013;310(20): 4187-6544 (http://educati on .[employer] .com/faq/TDX146 ) Cholesterol/HDL See_Comment [Automated ratio (test code = message] The 9830-1) system which generated this result transmitted reference range : <5.0 (calc). Th e reference range was not used to interpret this result as normal/abnormal . Non-HDL cholesterol See_Comment For mildred ents with (test code = diabetes plus 1 52374-9) major ASCVD ris k factor, treatin g to a non-HDL-C goal of <100 mg/dL (LDL-C of <70 mg/dL) is considered a therapeutic option. [Automated message] The system which generated this result transmitted reference range : <130 mg/dL (calc). The reference range was not used to interpret this result as normal/abnormal . SAGAR (test code = FASTING:YES SAGAR) FASTING: YES RAC (test code = Performing RAC) Organization Information: Site ID: [facility] Name: [facility] Address: [address] [place] [phone] Director: Roland ShawLamb Healthcare CenterVitamin B12 [id number] 03:26:00 Test Item Value Reference Range Interpretation Comments Vitamin B12 (test 529 pg/mL 200-1100 code = 2132-9) SAGAR (test code = FASTING:YES FASTING: YES SAGAR) RAC (test code = Performing Organization RAC) Information: Site ID: [facility] Name: [facility] Address: [address] [place] [phone] Director: Roland SongMercy Health Lorain HospitalFerritin [id number] 03:26:00 Test Item Value Reference Range Interpretation Comments Ferritin level (test 122 ng/mL 38-380 code = 2276-4) SAGAR (test code = SAGAR) FASTING:YES FASTING: YES RAC (test code = RAC) Performing Organization Information: Site ID: [facility] Name: [facility] Address: [address] [place] [phone] Director: [facility] LimaFolate [id number] 03:26:00 Test Item Value Reference Range Interpretation Comments Folate (test 20.0 ng/mL code = 2284-8) Refer ence Range Lo w: <3.4 Borderline: 3.4-5.4 Normal: >5.4 SAGAR (test code FASTING:YES FASTING: = SAGAR) YES RAC (test code Performing = RAC) Organization Information: Site ID: [place] Name: [facility] Address: [address] [place] [phone] Director: [facility] LimaHemoglobin [id number] 03:26:00 Test Item Value Reference Range Interpretation Comments Hemoglobin A1C See_Comment For the purpo se of (test code = screening for t he 4548-4) presence ofdiab etes: <5.7% Consistent with the absence of diabetes5.7-6.4 % Consistent with increased risk for diabetes (prediabetes)> or =6.5% Consiste nt with diabetes T his assay result is consistent with a decreased risko f diabetes. Curre ntly, no consensus ex ists regarding use ofhemoglobin A1 c for diagnosis of di abetes in children. According to [place] er[place] Diabetes Associ ation (ADA)guidelines , hemoglobin A1c <7.0% represents optimalcontrol in non- di abetic patients. Differentmetric s may apply to specif ic patient populat ions. Standards of Me dical Care in Diabetes(ADA). [Automated mess age] The system [employer] generated this result transmitted ref erence range: <5.7 % o f total Hgb. The reference range was not used to int erpret this result as normal/abnormal . SAGAR (test code = FASTING:YES SAGAR) FASTING: YES RAC (test code = Performing RAC) Organization Information: Site ID: RGA Name: [facility] Address: [address] [place] [phone] Director: [facility] LimaParathyroid [id number] 03:26:00 Test Item Value Reference Interpretation Comments Range PTH (test 53 pg/mL 14-64 Interpretive G uide Intact code = PTH 2731-8) Calcium-------- -------Normal P arathyroid Normal NormalHypoparat hyroidism Low or Low Norm al LowHyperparathy roidism Primary Normal or High High Secondary High Normal or Low Tertiary High HighNon-Parathy roid Hypercalcemia Low or Low Normal High SAGAR (test FASTING:YES code = FASTING: YES SAGAR) RAC (test Performing code = Organization RAC) Information: Site ID: [facility]GA Name: [facility] Address: [address] [place] [address] Director: Roland Villareal [place] [address], [id number] 03:26:00 Test Item Value Reference Range Interpretation Comments T4, free (test code 1.3 ng/dL 0.8-1.8 = 3024-7) SAGAR (test code = FASTING:YES FASTING: YES SAGAR) RAC (test code = Performing Organization RAC) Information: Site ID: RGA Name: [facility] Address: [address] [place] [address] Director: Roland ShawLamb Healthcare CenterThyroid stimulating [id number] 03:26:00 Test Item Value Reference Range Interpretation Comments TSH (test See_Comment [Automated mes laura] code = The system ic h 3016-3) generated this result transmit corby reference range : 0.40 - 4.50 mIU /L. The reference r sony was not used to interpret this result as normal/abnormal . SAGAR (test FASTING:YES FASTING: code = SAGAR) YES RAC (test Performing code = RAC) Organization Information: Site ID: RGA Name: [facility] Address: [address] [place], [place] [id number] Director: Roland GaminoWayne [place] [id number] 03:26:00 Test Item Value Reference Range Interpretation Comments T3 (test code = 132 ng/dL 76-181 3053-6) SAGAR (test code = FASTING:YES FASTING: YES SAGAR) RAC (test code = Performing Organization RAC) Information: Site ID: RGA Name: [facility] Address: [address] [place] [address] Director: Roland Villareal [facility] with platelet and [id number] 03:26:00 Test Item Value Reference Range Interpretation Comments WBC (test code = See_Comment [Automated 6690-2) message] The system which generated this result transmitted reference range : 3.8 - 10.8 Thousand/uL. Th e reference range was not used to interpret this result as normal/abnormal . RBC (test code = See_Comment [Automated 789-8) message] The system which generated this result transmitted reference range : 4.20 - 5.80 Million/uL. The reference range was not used to interpret this result as normal/abnormal . HGB (test code = 15.0 g/dL 13.2-17.1 718-7) HCT (test code = 44.0 % 38.5-50.0 4544-3) MCV (test code = 85.3 fL 80.0-100.0 787-2) MCH (test code = 29.1 pg 27.0-33.0 785-6) MCHC (test code = 34.1 g/dL 32.0-36.0 786-4) RDW (test code = 12.9 % 11.0-15.0 788-0) Platelet count See_Comment [Automated (test code = message] The 777-3) system which generated this result transmitted reference range : 140 - 400 Thousand/uL. Th e reference range was not used to interpret this result as normal/abnormal . MPV (test code = 10.7 fL 7.5-12.5 776-5) Neutrophils, See_Comment [Automated absolute (test message] The code = 751-8) system which generated this result transmitted reference range : 1,500 - 7,800 cells/uL. The reference range was not used to interpret this result as normal/abnormal . Lymphocytes, See_Comment [Automated absolute (test message] The code = 731-0) system which generated this result transmitted reference range : 850 - 3,900 cells/uL. The reference range was not used to interpret this result as normal/abnormal . Monocytes, See_Comment [Automated absolute (test message] The code = 742-7) system which generated this result transmitted reference range : 200 - 950 cells/uL. The reference range was not used to interpret this result as normal/abnormal . Eosinophils, See_Comment [Automated absolute (test message] The code = 711-2) system which generated this result transmitted reference range : 15 - 500 cells/uL. The reference range was not used to interpret this result as normal/abnormal . Basophils, See_Comment [Automated absolute (test message] The code = 704-7) system which generated this result transmitted reference range : 0 - 200 cells/u L. The reference range was not used to interpr et this result as normal/abnormal . Neutrophils (test 62.3 % code = 770-8) Lymphocytes (test 30.9 % code = 736-9) Monocytes (test 4.9 % code = 5905-5) Eosinophils (test 1.4 % code = 713-8) Basophils + RC 0.5 % (test code = 706-2) SAGAR (test code = FASTING:YES SAGAR) FASTING: YES RAC (test code = Performing RAC) Organization Information: Site ID: A Name: [facility] Address: [address] [place] [phone] Director: [facility] DionnaCleveland Clinic Union HospitalVitamin D 25 hydroxy [id number] 03:26:00 Test Item Value Reference Range Interpretation Comments Vitamin D, 24 ng/mL 30-100 L Vitamin D Statu s 25-hydroxy (test 25-O H code = 1989-3) Vitamin D: Deficiency: <2 0 ng/mLInsufficie nc y: 20 - 29 ng/mLOptimal: > o r = 30 ng/mL For 25-OH Vitamin D testing on patients on D2-supplementat io n and patients for whom quantitation of D2 and D3 fractions is required, the QuestAssureD(TM )2 5-OH VIT D, (D2,D3), LC/MS/ MS is recommended: order code 9288 8 (patients >2yrs).See Note 1 Note 1 For additional information, please refer to http://educatio n. [employer]. com/faq/AVZ788 (This link is being provided for informational/e du cational purpos es only.) SAGAR (test code = FASTING:YES SAGAR) FASTING: YES RAC (test code = Performing RAC) Organization Information: Site ID: RGA Name: [facility] Address: [address] [place] [address], [place] [address] Director: Roland Villareal Lab Interpretation Abnormal (test code = 24241-9) [facility] CenterVitamin A level, plasma or [id number] 03:26:00 Test Item Value Reference Range Interpretation Comments Vitamin A See_Comment Clin Chem Vol . (retinol) 34.No.8. [id number]. (test code = 1998Vitamin 2923-1) supplementation within 24 hours prior to blood draw m ay affect the accu racy of results. T his test was develo ped and its analyti nini performance characteristics have been determined by [employer]. It has not been cl eared or approved by theA. This as say has been valida corby pursuant to the CLIA regulations and is used for clinic al purposes. [Aut omated message] The sy stem which generated this result transmit corby reference range : 38 - 98 mcg/dL. The reference range was not used to int erpret this result as normal/abnormal . SAGAR (test code FASTING:YES = SAGAR) FASTING: YES RAC (test code Performing = RAC) Organization Information: Site ID: [facility] Name: [facility] Address: [address] [place] [address] Director: Hugh Dolan M.D. [facility] CenterZinc level, [id number] 03:26:00 Test Item Value Reference Range Interpretation Comments Zinc (test See_Comment This test was code = developed and i ts 5763-8) analytical perf ormance characteristics have been determined by [employer]. It has not been cl eared or approved by theA. This assay has been validated pursu ant to the CLIA regula tions and is used for clinical purpos es. [Automated mess age] The system whic h generated this result transmitted ref erence range: 60 - 130 mcg/dL. The ref erence range was not u sed to interpret this result as normal/abnor mal. SAGAR (test FASTING:YES FASTING: code = SAGAR) YES RAC (test Performing code = RAC) Organization Information: Site ID: [facility] Name: [facility] Address: [address] [place] [address] Director: Hugh Dolan M.D. [facility]amin B1 level, whole [id number] 03:26:00 Test Item Value Reference Interpretation Comments Range Vitamin B1, whole 208 nmol/L 78-185 H Vitamin blood (test code = supplemen tation 88654-9) within 24 hours prior toblood d raw may affect the accuracy of res ults. This test was developed and i ts analytical performance characteristics have been determined by [employer]. It has not been cleared or appr adilia by theFDA. This assay has been validated pursu ant to the CLIA regulations and is used for clinic al purposes. SAGAR (test code = FASTING:YES SAGAR) FASTING: YES RAC (test code = Performing RAC) Organization Information: Site ID: [facility] Name: [facility] Address: [address] [place] [address] Director: Hugh Dolan M.D. Lab Interpretation Abnormal (test code = 17214-3) [facility] CenterCopper level, [id number] 03:26:00 Test Item Value Reference Interpretation Comments Range Copper (test code = See_Comment L This te st was 5631-7) developed and i ts analytical performance characteristics have been determined by [employer]. It has not been cleared or appr adilia by theFDA. This assay has been validated pursu ant to the CLIA regulations and is used for clinic al purposes. [Automated mess age] The system [employer] generated this result transmit corby reference range : 70 - 175 mcg/dL. T he reference range was not used to interpret this result as normal/abnormal . SAGAR (test code = FASTING:YES SAGAR) FASTING: YES RAC (test code = Performing RAC) Organization Information: Site ID: [facility] Name: [facility] Address: [address] [place] [address] Director: Hugh Dolan M.D. Lab Interpretation Abnormal (test code = 68635-0) [facility] CenterTotal iron binding [id number] 03:26:00 Test Item Value Reference Range Interpretation Comments Iron level (test See_Comment [Automated code = 2498-4) message] The system which generated this result transmit corby reference range : 50 - 180 mcg/dL . The reference range was not u sed to interpret th is result as normal/abnormal . Iron binding See_Comment [Automated capacity (test message] The code = 2500-7) system which generated this result transmit corby reference range : 250 - 425 mcg/d L (calc). The reference range was not used to interpret this result as normal/abnormal . Iron saturation See_Comment [Automated (test code = message] The 2502-3) system which generated this result transmit corby reference range : 20 - 48 % (calc ). The reference range was not u sed to interpret th is result as normal/abnormal . SAGAR (test code = FASTING:YES SAGAR) FASTING: YES RAC (test code = Performing RAC) Organization Information: Site ID: [facility] Name: [facility] Address: [address] [place] [phone] Director: Roland Villareal [facility] metabolic [id number] 03:26:00 Test Item Value Reference Range Interpretation Comments Glucose (test code 96 mg/dL 65-99 = 2345-7) Fasting referen ce interval BUN (test code = 10 mg/dL 01-314-0) Creatinine (test 0.66 mg/dL 0.60-1.35 code = 2160-0) EGFR Non-Afr. See_Comment [Automated Burmese (test message] The code = 2775) system which generated this result transmitted reference range : > OR = 60 mL/min/1.73m2. The reference range was not used to interpr et this result as normal/abnormal . EGFR See_Comment [Automated Burmese (test message] The code = 2774) system which generated this result transmitted reference range : > OR = 60 mL/min/1.73m2. The reference range was not used to interpr et this result as normal/abnormal . BUN/creatinine NOT APPLICABLE See_Comment [Automated ratio (test code = message] The 3097-3) system which generated this result transmitted reference range : 6 - 22 (calc). The reference range was not used to interpr et this result as normal/abnormal . Sodium (test code 142 mmol/L 135-146 = 2951-2) Potassium (test 4.1 mmol/L 3.5-5.3 code = 2823-3) Chloride (test 107 mmol/L 98-110 code = 2075-0) CO2 (test code = 30 mmol/L 20-32 2028-03) Calcium (test code 9.0 mg/dL 8.6-10.3 = 96545-8) Protein (test code 6.4 g/dL 6.1-8.1 = 2885-2) Albumin, S (test 4.1 g/dL 3.6-5.1 code = 1751-7) Globulin, total See_Comment [Automated (test code = message] The 13244-5) system which generated this result transmitted reference range : 1.9 - 3.7 g/dL (calc). The reference range was not used to interpret this result as normal/abnormal . Albumin/globulin See_Comment [Automated ratio (test code = message] The 0) system which generated this result transmitted reference range : 1.0 - 2.5 (calc ). The reference range was not used to interpr et this result as normal/abnormal . Total bilirubin 1.0 mg/dL 0.2-1.2 (test code = 1974-2) Alkaline 101 U/L 36-130 phosphatase (test code = 6768-6) AST (test code = 16 U/L 10-40 0-8) ALT (test code = 21 U/L 9-46 2-6) SAGAR (test code = FASTING:YES SAGAR) FASTING: YES RAC (test code = Performing RAC) Organization Information: Site ID: [facility] Name: [facility] Address: [address] [place] [phone] Director: Roland Villareal [facility] CenterLipid [id number] 03:26:00 Test Item Value Reference Range Interpretation Comments Cholesterol, total 121 mg/dL <200 (test code = 2093-3) HDL cholesterol 50 mg/dL See_Comment [Automated (test code = 2084-9) message ] The system which generated this result transmitted reference range : > OR = 40. The reference range was not used to interpret this result as normal/abnormal . Triglycerides (test 80 mg/dL <150 code = 2571-8) LDL cholesterol mg/dL (calc) Reference ra nge: calculated (test <100 Desira ble code = 90911-5) range <100 m g/dL for primary prevention; <7 0 mg/dL for patients with C HD or diabetic patients with > or = 2 CHD risk factors. LDL-C is now calculated using the Enzo-Smith calculation, which is a validated novel method providin g better accuracy than the Friedewald equation in the estimation of LDL-C. Enzo S S et al. YUSUF. 2013;310(74): 1138-9633 (http://educati on .[employer] .com/faq/IQT661 ) Cholesterol/HDL See_Comment [Automated ratio (test code = message] The 9830-1) system which generated this result transmitted reference range : <5.0 (calc). Th e reference range was not used to interpret this result as normal/abnormal . Non-HDL cholesterol See_Comment For mildred ents with (test code = diabetes plus 1 05494-9) major ASCVD ris k factor, treatin g to a non-HDL-C goal of <100 mg/dL (LDL-C of <70 mg/dL) is considered a therapeutic option. [Automated message] The system which generated this result transmitted reference range : <130 mg/dL (calc). The reference range was not used to interpret this result as normal/abnormal . SAGAR (test code = FASTING:YES SAGAR) FASTING: YES RAC (test code = Performing RAC) Organization Information: Site ID: [facility] Name: [facility] Address: [address] [place] [phone] Director: Roland Josie GaminoFlagler BeachOhio State East HospitalVitamin B12 [id number] 03:26:00 Test Item Value Reference Range Interpretation Comments Vitamin B12 (test 529 pg/mL 200-1100 code = 2132-9) SAGAR (test code = FASTING:YES FASTING: YES SAGAR) RAC (test code = Performing Organization RAC) Information: Site ID: [facility] Name: [facility] Address: [address] [place] [phone] Director: Roland SongMercy Health Lorain HospitalFerritin [id number] 03:26:00 Test Item Value Reference Range Interpretation Comments Ferritin level (test 122 ng/mL 38-380 code = 2276-4) SAGAR (test code = SAGAR) FASTING:YES FASTING: YES RAC (test code = RAC) Performing Organization Information: Site ID: [facility] Name: [facility] Address: [address] [place] [phone] Director: [facility] LimaFolate [id number] 03:26:00 Test Item Value Reference Range Interpretation Comments Folate (test 20.0 ng/mL code = 2284-8) Refer ence Range Lo w: <3.4 Borderline: 3.4-5.4 Normal: >5.4 SAGAR (test code FASTING:YES FASTING: = SAGAR) YES RAC (test code Performing = RAC) Organization Information: Site ID: [facility] Name: [facility] Address: [address] [place] [phone] Director: [facility] LimaHemoglobin [id number] 03:26:00 Test Item Value Reference Range Interpretation Comments Hemoglobin A1C See_Comment For the purpo se of (test code = screening for t he 4548-4) presence ofdiab etes: <5.7% Consistent with the absence of diabetes5.7-6.4 % Consistent with increased risk for diabetes (prediabetes)> or =6.5% Consiste nt with diabetes T his assay result is consistent with a decreased risko f diabetes. Curre ntly, no consensus ex ists regarding use ofhemoglobin A1 c for diagnosis of di abetes in children. According to [place] er[place] Diabetes Associ ation (ADA)guidelines , hemoglobin A1c <7.0% represents optimalcontrol in non- di abetic patients. Differentmetric s may apply to specif ic patient populat ions. Standards of Me dical Care in Diabetes(ADA). [Automated mess age] The system [employer] generated this result transmitted ref erence range: <5.7 % o f total Hgb. The reference range was not used to int erpret this result as normal/abnormal . SAGAR (test code = FASTING:YES SAGAR) FASTING: YES RAC (test code = Performing RAC) Organization Information: Site ID: [facility] Name: [facility] Address: [address] [place] [phone] Director: [facility] LimaParathyroid [id number] 03:26:00 Test Item Value Reference Interpretation Comments Range PTH (test 53 pg/mL 14-64 Interpretive G uide Intact code = PTH 2731-8) Calcium-------- -------Normal P arathyroid Normal NormalHypoparat hyroidism Low or Low Norm al LowHyperparathy roidism Primary Normal or High High Secondary High Normal or Low Tertiary High HighNon-Parathy roid Hypercalcemia Low or Low Normal High SAGAR (test FASTING:YES code = FASTING: YES SAGAR) RAC (test Performing code = Organization RAC) Information: Site ID: [place] Name: [facility] Address: [address] [place] [address] Director: Roland ShawT[place] [address], [id number] 03:26:00 Test Item Value Reference Range Interpretation Comments T4, free (test code 1.3 ng/dL 0.8-1.8 = 3024-7) SAGAR (test code = FASTING:YES FASTING: YES SAGAR) RAC (test code = Performing Organization RAC) Information: Site ID: A Name: [facility] Address: [address] [place] [address] Director: Roland ShawL[facility] Healthcare CenterThyroid stimulating [id number] 03:26:00 Test Item Value Reference Range Interpretation Comments TSH (test See_Comment [Automated mes laura] code = The system whic h 3016-3) generated this result transmit corby reference range : 0.40 - 4.50 mIU /L. The reference r sony was not used to interpret this result as normal/abnormal . SAGAR (test FASTING:YES FASTING: code = SAGAR) YES RAC (test Performing code = RAC) Organization Information: Site ID: RGA Name: [facility] Address: [address] [place], [place] [id number] Director: Roland Josie [place] [id number] 03:26:00 Test Item Value Reference Range Interpretation Comments T3 (test code = 132 ng/dL 76-181 3053-6) SAGAR (test code = FASTING:YES FASTING: YES SAGAR) RAC (test code = Performing Organization RAC) Information: Site ID: RGA Name: [facility] Address: [address] [place] [address] Director: Roland Villareal [facility] with platelet and [id number] 03:26:00 Test Item Value Reference Range Interpretation Comments WBC (test code = See_Comment [Automated 6690-2) message] The system which generated this result transmitted reference range : 3.8 - 10.8 Thousand/uL. Th e reference range was not used to interpret this result as normal/abnormal . RBC (test code = See_Comment [Automated 789-8) message] The system which generated this result transmitted reference range : 4.20 - 5.80 Million/uL. The reference range was not used to interpret this result as normal/abnormal . HGB (test code = 15.0 g/dL 13.2-17.1 718-7) HCT (test code = 44.0 % 38.5-50.0 4544-3) MCV (test code = 85.3 fL 80.0-100.0 787-2) MCH (test code = 29.1 pg 27.0-33.0 785-6) MCHC (test code = 34.1 g/dL 32.0-36.0 786-4) RDW (test code = 12.9 % 11.0-15.0 788-0) Platelet count See_Comment [Automated (test code = message] The 777-3) system which generated this result transmitted reference range : 140 - 400 Thousand/uL. Th e reference range was not used to interpret this result as normal/abnormal . MPV (test code = 10.7 fL 7.5-12.5 776-5) Neutrophils, See_Comment [Automated absolute (test message] The code = 751-8) system which generated this result transmitted reference range : 1,500 - 7,800 cells/uL. The reference range was not used to interpret this result as normal/abnormal . Lymphocytes, See_Comment [Automated absolute (test message] The code = 731-0) system which generated this result transmitted reference range : 850 - 3,900 cells/uL. The reference range was not used to interpret this result as normal/abnormal . Monocytes, See_Comment [Automated absolute (test message] The code = 742-7) system which generated this result transmitted reference range : 200 - 950 cells/uL. The reference range was not used to interpret this result as normal/abnormal . Eosinophils, See_Comment [Automated absolute (test message] The code = 711-2) system which generated this result transmitted reference range : 15 - 500 cells/uL. The reference range was not used to interpret this result as normal/abnormal . Basophils, See_Comment [Automated absolute (test message] The code = 704-7) system which generated this result transmitted reference range : 0 - 200 cells/u L. The reference range was not used to interpr et this result as normal/abnormal . Neutrophils (test 62.3 % code = 770-8) Lymphocytes (test 30.9 % code = 736-9) Monocytes (test 4.9 % code = 5905-5) Eosinophils (test 1.4 % code = 713-8) Basophils + RC 0.5 % (test code = 706-2) SAGAR (test code = FASTING:YES SAGAR) FASTING: YES RAC (test code = Performing RAC) Organization Information: Site ID: A Name: [facility] Address: [address] [place] [phone] Director: [facility]imaVitamin D 25 hydroxy [id number] 03:26:00 Test Item Value Reference Range Interpretation Comments Vitamin D, 24 ng/mL 30-100 L Vitamin D Statu s 25-hydroxy (test 25-O H code = 1989-3) Vitamin D: Deficiency: <2 0 ng/mLInsufficie nc y: 20 - 29 ng/mLOptimal: > o r = 30 ng/mL For 25-OH Vitamin D testing on patients on D2-supplementat io n and patients for whom quantitation of D2 and D3 fractions is required, the QuestAssureD(TM )2 5-OH VIT D, (D2,D3), LC/MS/ MS is recommended: order code 9288 8 (patients >2yrs).See Note 1 Note 1 For additional information, please refer to http://educatio n. TRUECar. com/faq/LRV783 (This link is being provided for informational/e du cational purpos es only.) SAGAR (test code = FASTING:YES SAGAR) FASTING: YES RAC (test code = Performing RAC) Organization Information: Site ID: RGA [facility]: [facility] Address: [address] [place] [phone] Director: Roland Villareal Lab Interpretation Abnormal (test code = 82835-3) [facility] CenterVitamin A level, plasma or [id number] 03:26:00 Test Item Value Reference Range Interpretation Comments Vitamin A See_Comment Clin Chem Vol . (retinol) 34.No.8. [id number]. (test code = 1998Vitamin 2923-1) supplementation within 24 hours prior to blood draw m ay affect the accu racy of results. T his test was develo ped and its analyti nini performance characteristics have been determined by [employer]. It has not been cl eared or approved by theA. This as say has been valida corby pursuant to the CLIA regulations and is used for clinic al purposes. [Aut omated message] The sy stem which generated this result transmit corby reference range : 38 - 98 mcg/dL. The reference range was not used to int erpret this result as normal/abnormal . SAGAR (test code FASTING:YES = SAGAR) FASTING: YES RAC (test code Performing = RAC) Organization Information: Site ID: [facility] Name: [facility] Address: [address] [place] [phone] Director: Hugh Dolan M.D. [facility] CenterZinc level, [id number] 03:26:00 Test Item Value Reference Range Interpretation Comments Zinc (test See_Comment This test was code = developed and i ts 5763-8) analytical perf ormance characteristics have been determined by [employer]. It has not been cl eared or approved by theFDA. This assay has been validated pursu ant to the CLIA regula tions and is used for clinical purpos es. [Automated mess age] The system whic h generated this result transmitted ref erence range: 60 - 130 mcg/dL. The ref erence range was not u sed to interpret this result as normal/abnor mal. SAGAR (test FASTING:YES FASTING: code = SAGAR) YES RAC (test Performing code = RAC) Organization Information: Site ID: [facility] Name: [facility] Address: [address] [place] [phone] Director: Hugh Dolan M.D. [facility] CenterVitamin B1 level, whole [id number] 03:26:00 Test Item Value Reference Interpretation Comments Range Vitamin B1, whole 208 nmol/L 78-185 H Vitamin blood (test code = supplemen tation 49247-4) within 24 hours prior toblood d raw may affect the accuracy of res ults. This test was developed and i ts analytical performance characteristics have been determined by [employer]. It has not been cleared or appr adilia by theFDA. This assay has been validated pursu ant to the CLIA regulations and is used for clinic al purposes. SAGAR (test code = FASTING:YES SAGAR) FASTING: YES RAC (test code = Performing RAC) Organization Information: Site ID: [facility] Name: [facility] Address: [address] [place] [phone] Director: Hugh Dolan M.D. Lab Interpretation Abnormal (test code = 90080-0) [facility] CenterCopper level, [id number] 03:26:00 Test Item Value Reference Interpretation Comments Range Copper (test code = See_Comment L This te st was 5631-7) developed and i ts analytical performance characteristics have been determined by [employer]. It has not been cleared or appr adilia by theFDA. This assay has been validated pursu ant to the CLIA regulations and is used for clinic al purposes. [Automated mess age] The system [employer] generated this result transmit corby reference range : 70 - 175 mcg/dL. T he reference range was not used to interpret this result as normal/abnormal . SAGAR (test code = FASTING:YES SAGAR) FASTING: YES RAC (test code = Performing RAC) Organization Information: Site ID: [facility] Name: [facility] [place] Address: [address] [place] [address] Director: Hugh Dolan M.D. Lab Interpretation Abnormal (test code = 86602-7) [facility] binding [id number] 03:26:00 Test Item Value Reference Range Interpretation Comments Iron level (test See_Comment [Automated code = 2498-4) message] The system which generated this result transmit corby reference range : 50 - 180 mcg/dL . The reference range was not u sed to interpret th is result as normal/abnormal . Iron binding See_Comment [Automated capacity (test message] The code = 2500-7) system which generated this result transmit corby reference range : 250 - 425 mcg/d L (calc). The reference range was not used to interpret this result as normal/abnormal . Iron saturation See_Comment [Automated (test code = message] The 2502-3) system which generated this result transmit corby reference range : 20 - 48 % (calc ). The reference range was not u sed to interpret th is result as normal/abnormal . SAGAR (test code = FASTING:YES SAGAR) FASTING: YES RAC (test code = Performing RAC) Organization Information: Site ID: [facility] Name: [facility] Address: [address] [place] [address] Director: [facility] LimaUric acid [id number] 22:58:00 Test Item Value Reference Range Interpretation Comments Uric acid 5.0 mg/dL 4.0-8.0 Therapeutic tar get (test code = for gout patien ts: 3084-1) <6.0 mg/dL SAGAR (test FASTING:NO FASTING: code = SAGAR) NO RAC (test Performing code = RAC) Organization Information: Site ID: [facility] Name: [facility] Address: [address] [place] [address] Director: Roland Josie [facility] HospitalC-reactive [id number] 22:58:00 Test Item Value Reference Range Interpretation Comments CRP (test code = 0.7 mg/L <8.0 1987-5) SAGAR (test code = FASTING:NO FASTING: NO SAGAR) RAC (test code = Performing Organization RAC) Information: Site ID: A Name: [facility] Address: [address] [place] [address] Director: [facility] Hospitaledimentation [id number] 22:58:00 Test Item Value Reference Range Interpretation Comments Sedimentation rate 2 mm/h See_Comment [Automat ed (test code = 4537-7) message ] The system which generated this result transmitted reference range : < OR = 15. The reference range was not used to interpret this result as normal/abnormal . SAGAR (test code = FASTING:NO SAGAR) FASTING: NO RAC (test code = Performing RAC) Organization Information: Site ID: A Name: [facility] Address: [address] [place] [phone] Director: Roland Villareal [facility] Screen,IFA,Reflex Titer/Pattern,Reflex Mplx 11 Ab [place] with [id number] 22:58:00 Test Item Value Reference Interpretation Comments Range CARLINE Screen NEGATIVE NEGATIVE CARLINE IFA is a fi rst line (test code = screen for dete cting 41775-3) thepresence of up to approximately 1 50 autoantibodies invarious autoimmune dise ases. A negative CARLINE IF A resultsuggests an CARLINE-associated autoimmune disease is notp resent at this time, and does not reflex further. Ifther e is high clinical suspic ion for Sjogren's syndr ome,testing for anti-SS-A/R o antibody should be considered.Anti -Angela-1 antibody should be consi dered for clinicallysuspe cted inflammatory my opathies. AC-0: Negative International Consensus on AN A Patterns(https: //doi.org/10.1 515/ccl-2017-0 052) For additional info rmation, please refer tohttp://educat ion.[employer] ([employer])/faq/ UVY671(This link is being p rovided for informational/e ducational purposes only.) Rheumatoid <14 See_Comment [Automated mes laura] The factor (test system which ge nerated this code = result transmit corby reference 82465-7) range: <14 IU/m L. The reference range was not used to interpret th is result as normal/abnormal . Cyclic <16 UNITS Reference Range Negative: citrullin <20Weak P ositive: peptide Ab 20-39Moderate P ositive: (test code = 40-59Strong Pos itive: >59 50880-0) 14.3.3 ETA <0.2 See_Comment The 14-3-3eta protein is a protein (test marker of syno vial code = inflammationtha t is released 87699-6) into synovial f luid and peripheral bloo d inrheumatoid arthritis (RA) and erosive psoriatic arthr itis.One in five RF and CCP seronegative early stage RA patientsis found to be pos itive for 14-3-3eta prote in. Patients withactive join t RA disease have higher jamila ues of 61-0-4ecvisfqcp n than those with inactive R A or psoriasis withoutarthriti s. 14-3-3eta protein has a 9 3% specificity inpatients with RA. Values > or = 0.2 ng/mL are elevated andindicative o f RA disease or erosive psor iatic arthritis.Value s >0.50 ng/mL are associated with more aggressive RAdi sease and poorer outcomes . Unlike RF and CCP, 14-3-3 etaprotein is a therapeutical ly modifiable marker to monit orresponse to therapy. A decr ease in 14-3-3eta prote in inresponse to DMARDs (dise ase-modifying antirheumatic d rugs)and anti-TNF (tumor necrosis factor) drugs i ndicates betterclinical outcomes; an increase is ass ociated with worseoutcomes d espite apparent clinic al remission. For further inf ormation please visit:http://[place].[employer].WeLink/testce nter/testguide .action?dc=TS-R mArthPnl This test was develo ped and its analytical performancechar acteristics have been deter mined by [facility]. It has not beencleared or approved by FDA. This as say has been validatedpursua nt to the CLIA regulations and is used for clinicalpurpose s. [Automated message] The sy stem which generated this result transmitted ref erence range: <0.2 ng/mL. The reference range was not u sed to interpret this result as normal/abnormal . SAGAR (test code FASTING:NO = SAGAR) FASTING: NO RAC (test code Performing = RAC) Organization Information: Site ID: EZ Name: [employer], Address: [address] [place] [phone] Director: Reshma Brooks MD,PhD,COLLEEN Site ID: IG Name: [facility] Address: [address] [place] [address] Director: Dr. Roland Villareal [facility] CenterUric acid [id number] 22:58:00 Test Item Value Reference Range Interpretation Comments Uric acid 5.0 mg/dL 4.0-8.0 Therapeutic tar get (test code = for gout patien ts: 3084-1) <6.0 mg/dL SAGAR (test FASTING:NO FASTING: code = SAGAR) NO RAC (test Performing code = RAC) Organization Information: Site ID: [place] Name: [facility] Address: [address] [place] [address] Director: [facility]imaC-reactive [id number] 22:58:00 Test Item Value Reference Range Interpretation Comments CRP (test code = 0.7 mg/L <8.0 1987-11) SAGAR (test code = FASTING:NO FASTING: NO SAGAR) RAC (test code = Performing Organization RAC) Information: Site ID: [place] Name: [facility] Address: [address] [place] [address] Director: [facility] Centerimentation [id number] 22:58:00 Test Item Value Reference Range Interpretation Comments Sedimentation rate 2 mm/h See_Comment [Automat ed (test code = 4537-7) message ] The system which generated this result transmitted reference range : < OR = 15. The reference range was not used to interpret this result as normal/abnormal . SAGAR (test code = FASTING:NO SAGAR) FASTING: NO RAC (test code = Performing RAC) Organization Information: Site ID: [place] Name: [facility] Address: [address] [place] [address] Director: [facility]imaANA Screen,IFA,Reflex Titer/Pattern,Reflex Mplx 11 Ab [place] with [id number] 22:58:00 Test Item Value Reference Interpretation Comments Range CARLINE Screen NEGATIVE NEGATIVE CARLINE IFA is a fi rst line (test code = screen for dete cting 88871-2) thepresence of up to approximately 1 50 autoantibodies invarious autoimmune dise ases. A negative CARLINE IF A resultsuggests an CARLINE-associated autoimmune disease is notp resent at this time, and does not reflex further. Ifther e is high clinical suspic ion for Sjogren's syndr ome,testing for anti-SS-A/R o antibody should be considered.Anti -Angela-1 antibody should be consi dered for clinicallysuspe cted inflammatory my opathies. AC-0: Negative International Consensus on AN A Patterns(https: //doi.org/10.1 515/cclm-2018-0 052) For additional info rmation, please refer tohttp://educat ion.[employer] ([employer])/faq/ NNR982(This link is being p rovided for informational/e ducational purposes only.) Rheumatoid <14 See_Comment [Automated mes laura] The factor (test system which ge nerated this code = result transmit corby reference 31370-5) range: <14 IU/m L. The reference range was not used to interpret th is result as normal/abnormal . Cyclic <16 UNITS Reference Range Negative: citrullin <20Weak P ositive: peptide Ab 20-39Moderate P ositive: (test code = 40-59Strong Pos itive: >59 76802-6) 14.3.3 ETA <0.2 See_Comment The 14-3-3eta protein is a protein (test marker of syno vial code = inflammationtha t is released 15204-7) into synovial f luid and peripheral bloo d inrheumatoid arthritis (RA) and erosive psoriatic arthr itis.One in five RF and CCP seronegative early stage RA patientsis found to be pos itive for 14-3-3eta prote in. Patients withactive join t RA disease have higher jamila ues of 27-6-9vpueixmrm n than those with inactive R A or psoriasis withoutarthriti s. 14-3-3eta protein has a 9 3% specificity inpatients with RA. Values > or = 0.2 ng/mL are elevated andindicative o f RA disease or erosive psor iatic arthritis.Value s >0.50 ng/mL are associated with more aggressive RAdi sease and poorer outcomes . Unlike RF and CCP, 14-3-3 etaprotein is a therapeutical ly modifiable marker to monit orresponse to therapy. A decr ease in 14-3-3eta prote in inresponse to DMARDs (dise ase-modifying antirheumatic d rugs)and anti-TNF (tumor necrosis factor) drugs i ndicates betterclinical outcomes; an increase is ass ociated with worseoutcomes d espite apparent clinic al remission. For further inf ormation please visit:http://goyo w.[employer].WeLink/testce nter/testguide .action?dc=TS-R mArthPnl This test was develo ped and its analytical performancechar acteristics have been deter mined by [facility]. It has not beencleared or approved by FDA. This as say has been validatedpursua nt to the CLIA regulations and is used for clinicalpurpose s. [Automated message] The sy stem which generated this result transmitted ref erence range: <0.2 ng/mL. The reference range was not u sed to interpret this result as normal/abnormal . SAGAR (test code FASTING:NO = SAGAR) FASTING: NO RAC (test code Performing = RAC) Organization Information: Site ID: EZ Name: [employer], Address: [address] [place] [phone] Director: Reshma Brooks MD,PhD,COLLEEN Site ID: IG Name: [facility] Address: [address] [place] [phone] Director: Dr. Roland [facility] HospitalURINALYSIS, COMPLETE, WITH REFLEX TO [id number] 10:39:00 Test Item Value Reference Range Interpretation Comments Color, UA (test code YELLOW YELLOW = 5778-6) Appearance (test CLEAR CLEAR code = 5767-9) Specific gravity, 1.001-1.035 urine (test code = 5811-5) pH, urine (test code 5.0-8.0 = 5803-2) Glucose, urine (test NEGATIVE NEGATIVE code = 56921-5) Bilirubin, UA (test NEGATIVE NEGATIVE code = 5770-3) Ketones, UA (test TRACE NEGATIVE A code = 1854-8) Occult blood, urine NEGATIVE NEGATIVE (test code = 5794-3) Protein, UA (test NEGATIVE NEGATIVE code = 93501-9) Nitrite, UA (test NEGATIVE NEGATIVE code = 5802-4) Leukocyte esterase, NEGATIVE NEGATIVE UA (test code = 5799-2) WBC, UA (test code = NONE SEEN See_Comment [Autom ated 5821-4) message] The system which generated this result transmitted reference range : < OR = 5 /HPF. The reference range was not used to interpr et this result as normal/abnormal . RBC, UA (test code = NONE SEEN See_Comment [Autom ated 22537-0) message] The system which generated this result transmitted reference range : < OR = 2 /HPF. The reference range was not used to interpr et this result as normal/abnormal . Squamous epithelial NONE SEEN See_Comment [Automa corby cells, UA (test code message ] The = 49434-6) system which generated this result transmitted reference range : < OR = 5 /HPF. The reference range was not used to interpr et this result as normal/abnormal . Bacteria, UA (test NONE SEEN NONE SEEN /HPF code = 5769-5) Hyaline casts, UA NONE SEEN NONE SEEN /LPF (test code = 5796-8) RAC (test code = Performing RAC) Organization Information: Site ID: RGA Name: [facility] Address: [address] [place], [place] [phone] Director: Roland Villareal Lab Interpretation Abnormal (test code = 77229-2) [facility], WITH REFLEX TO [id number] 10:39:00 Test Item Value Reference Range Interpretation Comments Color, UA (test code YELLOW YELLOW = 5778-6) Appearance (test CLEAR CLEAR code = 5767-9) Specific gravity, 1.001-1.035 urine (test code = 5811-5) pH, urine (test code 5.0-8.0 = 5803-2) Glucose, urine (test NEGATIVE NEGATIVE code = 99271-5) Bilirubin, UA (test NEGATIVE NEGATIVE code = 5770-3) Ketones, UA (test TRACE NEGATIVE A code = 2514-8) Occult blood, urine NEGATIVE NEGATIVE (test code = 5794-3) Protein, UA (test NEGATIVE NEGATIVE code = 52762-6) Nitrite, UA (test NEGATIVE NEGATIVE code = 5802-4) Leukocyte esterase, NEGATIVE NEGATIVE UA (test code = 5799-2) WBC, UA (test code = NONE SEEN See_Comment [Autom ated 5821-4) message] The system which generated this result transmitted reference range : < OR = 5 /HPF. The reference range was not used to interpr et this result as normal/abnormal . RBC, UA (test code = NONE SEEN See_Comment [Autom ated 15918-9) message] The system which generated this result transmitted reference range : < OR = 2 /HPF. The reference range was not used to interpr et this result as normal/abnormal . Squamous epithelial NONE SEEN See_Comment [Automa corby cells, UA (test code message ] The = 05485-9) system which generated this result transmitted reference range : < OR = 5 /HPF. The reference range was not used to interpr et this result as normal/abnormal . Bacteria, UA (test NONE SEEN NONE SEEN /HPF code = 5769-5) Hyaline casts, UA NONE SEEN NONE SEEN /LPF (test code = 5796-8) RAC (test code = Performing RAC) Organization Information: Site ID: [facility] Name: [facility] Lab Address: [address] [place] [address] Director: Roland Villareal Lab Interpretation Abnormal (test code = 97781-2) [facility] CenterReflexive urine [id number] 10:39:00ReflexComment: NO CULTURE INDICATEDQUEST DIAGNOSTICS [facility] Organization Information: Site ID: [facility] Name: [facility] Lab Address: [address] [place] [address] Director: [facility] Reflexive urine [id number] 10:39:00ReflexComment: NO CULTURE INDICATEDQUEST DIAGNOSTICS [facility] Organization Information: Site ID: [facility] Name: [facility] Address: [address] [place] [address] Director: [facility] SARS-CoV-2 (COVID-19) RNA [Presence] in Respiratory specimen by SANDOVAL with probe [id number] 00:03:33 Test Item Value Reference Range Interpretation Comments SARS-CoV-2 (COVID-19) RNA Not detected Not-Detected [Presence] in Respiratory specimen by SANDOVAL with probe detection (test code = 66318-2) SARS-COV2/RT-PCR ([facility])2019-12-18 03:23:00 Test Item Value Reference Range Interpretation Comments SARS-COV2/RT-PCR (test Not Detected Not Detected, Negative code = 6429345) SARS-COV-[address] [facility] (test code = 9833408) Negative results do not preclude SARS-CoV-2 infection and should not be used as the sole basis for patient management decisions. Negative results must be combined with clinical observations, patient history, and epidemiological information. A false negative result may occur if a specimen is improperly collected, transported or handled.The limit of detection for this assay is 250 copies/mL.This SARS CoV-2 test is a rapid, real-time RT-PCR test intended for the qualitative detection of nucleic acid from SARS-CoV-2 in a nasopharyngeal swab specimen collected from individuals suspected of COVID-19 by their healthcare provider.This test has not been Food and Drug Administration (FDA) cleared or approved and has been authorized by FDA under an Emergency Use Authorization (EUA). This EUA will be effective until the declaration that circumstances exist justifying the authorization of the emergency use of in vitro diagnostic tests for detection and/or diagnosis of COVID-19 is terminated under Section 564(b)(2) of the Act or the EUA is revoked under Section 564(g) of the Act.Fact Sheet for Healthcare Pro viders:https://www.[employer]/Documents/Xpert%20Xpress%20SARS%20CoV-2/Fact%20Sh eets/3023802%07VKOK-SVK-0%20HEALTHCARE%20PROVIDERS%20FACT%20SHEET.pdfFact Sheet for Healthcare Patients:https://www.[employer]/Documents/Xpert%20Xpress%20SARS%20CoV-2/Fact%20Sheets/3023801%20SARS-COV -2%20PATIENT%20FACT%20SHEET.pdfPerforming Laboratory:[facility] [place] [address]
[2021-12-10 13:24] LABS: Absolute Lymphocytes (CBC) 1.3 K/uL (0.7-4.9); Lymphocytes % 26.1 % (15.3-44.8); MPV 7.7 fL (7.6-11.3); RBC Red Blood Cell Count 5.26 M/uL (4.33-5.43)
[2021-12-10 13:29] LABS: Protime INR 1.23
[2021-12-10] MEDS ORDERED: NA CHLORIDE 0.9% 1,000 ML ONE (13:44)
[2021-12-10 13:49] LABS: Albumin 3.8 g/dL (3.4-5.0); Bilirubin Direct 0.3 mg/dL (0-0.2); Bilirubin Total 1.2 mg/dL (0.2-1.0); Magnesium 2.2 mg/dL (1.8-2.4); Potassium 3.6 mmol/L (3.5-5.1)
--- NOTE | 2021-12-10 13:51 | RAD REPORT ---
EXAM DESCRIPTION: RAD - Chest Single View - 12/10/2021 1:41 pm CLINICAL HISTORY: COUGH Chest pain. COMPARISON: Chest Single View dated 12/17/2019 FINDINGS: Portable technique limits examination quality. The lungs are underinflated resulting in vascular crowding. The heart is normal in size. No displaced fractures.
--- NOTE | 2021-12-10 13:51 | RAD REPORT ---
EXAM DESCRIPTION: CT - CTHCSPWOC - 12/10/2021 1:29 pm CLINICAL HISTORY: Trauma, head and neck injury. syncope COMPARISON: No comparisons TECHNIQUE: Axial 5 mm thick images of the head were obtained. Axial 2 mm thick images of the cervical spine were obtained with sagittal and coronal reconstruction images generated and reviewed. All CT scans are performed using dose optimization technique as appropriate and may include automated exposure control or mA/KV adjustment according to patient size. FINDINGS: CT HEAD WITHOUT CONTRAST: No acute hemorrhage, hydrocephalus or extra-axial collection is identified.No areas of brain edema or midline shift. The paranasal sinuses and mastoids are clear.The calvarium is intact. CT CERVICAL SPINE WITHOUT CONTRAST: No fracture or subluxation.Mild lower cervical spondylosis.No prevertebral soft tissues swelling is i dentified. IMPRESSION: No acute intracranial or cervical spine findings.
--- NOTE | 2021-12-10 14:23 | ER ---
Nurse's Notes [facility] Name: Efren Burgess Age: 46 yrs Sex: Male : 1975 Arrival Date: 12/10/2021 Time: 12:58 Bed 18 Private MD: Diagnosis: Syncope Near;Type 2 diabetes mellitus with hyperglycemia;Fall on same level, unspecified;Unspecified injury of head, initial encounter;Heat exhaustion, unspecified Presentation: 12/10 12:58 Chief complaint: Patient states: syncope fall back hitting back of head-positive LOC no trevizo bleed thinners. Coronavirus screen: Vaccine status: Patient reports receiving the 2nd dose of the covid vaccine. Ebola Screen: Patient denies travel to an Ebola-affected area in the 21 days before illness onset. Initial Sepsis Screen: Does the patient meet any 2 criteria? No. Patient's initial sepsis screen is negative. Does the patient have a suspected source of infection? No. Patient's initial sepsis screen is negative. Risk Assessment: Do you want to hurt yourself or someone else? Patient reports no desire to harm self or others. Onset of symptoms was December 10, 2021. 12:58 Method Of Arrival: EMS: [facility] 12:58 Acuity: AUGUSTUS 3 trevizo Triage Assessment: 13:01 General: Appears in no apparent distress. Behavior is calm, cooperative. Pain: trevizo Complains of pain in scalp. Historical: - Allergies: 13:01 Kiwi (Actinidia Chinensis); trevizo 13:01 Strawberries; trevizo - Home Meds: 13:01 Synjardy 5-1,000 mg Oral tab 1 tab 2 times per day for Type 2 Diabetes Mellitus trevizo [Active]; Tradjenta 5 mg Oral tab 1 tab once daily [Active]; - PMHx: 13:01 Diabetes - NIDDM; trevizo - Immunization history:: Adult Immunizations up to date. - Social history:: Smoking status: Patient denies any tobacco usage or history of. - Family history:: not pertinent. Screenin:02 Abuse screen: Denies threats or abuse. Denies injuries from another. Nutritional trevizo screening: No deficits noted. Tuberculosis screening: No symptoms or risk factors identified. Fall Risk None identified. Assessment: 13:02 Pain: Complains of pain in scalp. Neuro: Level of Consciousness is awake, alert, obeys commands, Oriented to person, place, time, situation, Reports dizziness, headache a syncopal episode. Vital Signs: 12:58 BP 107 / 65; Pulse 87; Resp 18; Temp 98.5; Pulse Ox 98% ; Weight 111.13 kg; Height 5 trevizo ft. 9 in. (175.26 cm); 12:58 Body Mass Index 36.18 (111.13 kg, 175.26 cm) trevizo ED Course: 12:58 Patient arrived in ED. [facility] 12:58 Surya Umanzor MD is Attending Physician. [facility] 12:58 Shellie England, RN is Primary Nurse. trevizo 13:01 Triage completed. trevizo 13:01 Arm band placed on. trevizo 13:04 Patient has correct armband on for positive identification. Bed in low position. trevizo 13:04 No provider procedures requiring assistance completed. Maintain EMS IV. Gauge \T\ site: trevizo 18 LAC. 13:18 EKG done, by ED staff. tm3 13:31 CT Head C Spine In Process Unspecified. EDMS 13:41 XRAY Chest (1 view) In Process Unspecified. EDMS 15:14 IV discontinued, intact, Pressure dressing applied. trevizo Administered Medications: 13:23 Drug: NS 0.9% 1000 ml Route: IV; Rate: 1 bolus; Site: left antecubital; Medication: 13:02 VIS not applicable for this client. trevizo Outcome: 14:22 Discharge ordered by . [facility] 15:13 Discharged to home ambulatory. trevizo 15:13 Condition: good 15:13 Discharge instructions given to patient, family. 15:15 Patient left the ED. trevizo Signatures: Dispatcher [employer] EDMS Tha Jane tm3 Surya Umanzor MD MD cha Au-Stager, Heather, RN RN trevizo
--- NOTE | 2021-12-10 14:23 | EDPHYS ---
Physician Documentation [facility] Name: Efren Burgess Age: 46 yrs Sex: Male : 1975 Arrival Date: 12/10/2021 Time: 12:58 Bed 18 Private MD: ED Physician Surya Umanzor HPI: 12/10 13:23 This 46 yrs old Male presents to ER via EMS with complaints of syncope and hit [facility] head. 13:23 The patient has experienced near-syncope, almost passed out, felt dizzy. Onset: The leonides symptoms/episode began/occurred just prior to arrival. Duration: This was a single episode, that lasted 10 second(s). Context: the episode(s) was witnessed, by family, . Associated injury: Head/face:. Associated signs and symptoms: The patient has no apparent associated signs or symptoms. Current symptoms: Currently, the patient is not experiencing any symptoms. The patient has not experienced similar symptoms in the past. Historical: - Allergies: 13:01 Kiwi (Actinidia Chinensis); trevizo 13:01 Strawberries; trevizo - Home Meds: 13:01 Synjardy 5-1,000 mg Oral tab 1 tab 2 times per day for Type 2 Diabetes Mellitus trevizo [Active]; Tradjenta 5 mg Oral tab 1 tab once daily [Active]; - PMHx: 13:01 Diabetes - NIDDM; trevizo - Immunization history:: Adult Immunizations up to date. - Social history:: Smoking status: Patient denies any tobacco usage or history of. - Family history:: not pertinent. ROS: 13:23 Constitutional: Negative for fever, chills, and weight loss, Eyes: Negative for injury, leonides pain, redness, and discharge, ENT: Negative for injury, pain, and discharge, Neck: Negative for injury, pain, and swelling, Cardiovascular: Negative for chest pain, palpitations, and edema, Respiratory: Negative for shortness of breath, cough, wheezing, and pleuritic chest pain, Abdomen/GI: Negative for abdominal pain, nausea, vomiting, diarrhea, and constipation, Back: Negative for injury and pain, : Negative for injury, bleeding, discharge, and swelling, MS/Extremity: Negative for injury and deformity, Skin: Negative for injury, rash, and discoloration, Psych: Negative for depression, anxiety, suicide ideation, homicidal ideation, and hallucinations, Allergy/Immunology: Negative for hives, rash, and allergies, Endocrine: Negative for neck swelling, polydipsia, polyuria, polyphagia, and marked weight changes, Hematologic/Lymphatic: Negative for swollen nodes, abnormal bleeding, and unusual bruising. 13:23 Neuro: Positive for headache. Exam: 13:23 Constitutional: This is a well developed, well nourished patient who is awake, alert, leonides and in no acute distress. Head/Face: Normocephalic, atraumatic. Eyes: Pupils equal round and reactive to light, extra-ocular motions intact. Lids and lashes normal. Conjunctiva and sclera are non-icteric and not injected. Cornea within normal limits. Periorbital areas with no swelling, redness, or edema. ENT: Nares patent. No nasal discharge, no septal abnormalities noted. Tympanic membranes are normal and external auditory canals are clear. Oropharynx with no redness, swelling, or masses, exudates, or evidence of obstruction, uvula midline. Mucous membranes moist. Neck: Trachea midline, no thyromegaly or masses palpated, and no cervical lymphadenopathy. Supple, full range of motion without nuchal rigidity, or vertebral point tenderness. No Meningismus. Chest/axilla: Normal chest wall appearance and motion. Nontender with no deformity. No lesions are appreciated. Cardiovascular: Regular rate and rhythm with a normal S1 and S2. No gallops, murmurs, or rubs. Normal PMI, no JVD. No pulse deficits. Respiratory: Lungs have equal breath sounds bilaterally, clear to auscultation and percussion. No rales, rhonchi or wheezes noted. No increased work of breathing, no retractions or nasal flaring. Abdomen/GI: Soft, non-tender, with normal bowel sounds. No distension or tympany. No guarding or rebound. No evidence of tenderness throughout. Back: No spinal tenderness. No costovertebral tenderness. Full range of motion. Male : Normal genitalia with no discharge or lesions. Skin: Warm, dry with normal turgor. Normal color with no rashes, no lesions, and no evidence of cellulitis. MS/ Extremity: Pulses equal, no cyanosis. Neurovascular intact. Full, normal range of motion. Neuro: Awake and alert, GCS 15, oriented to person, place, time, and situation. Cranial nerves II-XII grossly intact. Motor strength 5/5 in all extremities. Sensory grossly intact. Cerebellar exam normal. Normal gait. Psych: Awake, alert, with orientation to person, place and time. Behavior, mood, and affect are within normal limits. 13:36 ECG was reviewed by the Attending Physician. [facility] Vital Signs: 12:58 BP 107 / 65; Pulse 87; Resp 18; Temp 98.5; Pulse Ox 98% ; Weight 111.13 kg; Height 5 trevizo ft. 9 in. (175.26 cm); 12:58 Body Mass Index 36.18 (111.13 kg, 175.26 cm) trevizo MDM: 12:58 Patient medically screened. [facility] 13:34 Differential Diagnosis: cardiac arrhythmia, cerebrovascular accident, idiopathic leonides syncope, seizure, vasovagal episode. Data reviewed: vital signs, nurses notes, lab test result(s), EKG, radiologic studies, CT scan, plain films. Data interpreted: quality assurance monitor body: rate is 87 beats/min, rhythm is regular, Pulse oximetry: on room air is 98 %. Test interpretation: by ED physician or midlevel provider: ECG, plain radiologic studies. Counseling: I had a detailed discussion with the patient and/or guardian regarding: the historical points, exam findings, and any diagnostic results supporting the discharge/admit diagnosis, lab results, radiology results. 12/10 13:07 Order name: Basic Metabolic Panel; Complete Time: 14:21 [facility] 12/10 13:07 Order name: CBC with Diff; Complete Time: 14:21 [facility] 12/10 13:07 Order name: LFT's; Complete Time: 14:21 [facility] 12/10 13:07 Order name: Magnesium; Complete Time: 14:21 [facility] 12/10 13:07 Order name: NT PRO-BNP; Complete Time: 14:21 [facility] 12/10 13:07 Order name: PT-INR; Complete Time: 14:21 [facility] 12/10 13:07 Order name: Troponin HS; Complete Time: 14:21 [facility] 12/10 13:07 Order name: XRAY Chest (1 view); Complete Time: 14:21 [facility] 12/10 13:07 Order name: EKG; Complete Time: 13:08 [facility] 12/10 13:07 Order name: Cardiac monitoring; Complete Time: 13:23 [facility] 12/10 13:07 Order name: EKG - Nurse/Tech; Complete Time: 13:22 [facility] 12/10 13:07 Order name: Lipase; Complete Time: 14: [facility] 12/10 13:07 Order name: CT Head C Spine; Complete Time: 14: [facility] 12/10 13:07 Order name: IV Saline Lock; Complete Time: 13:22 [facility] 12/10 13:07 Order name: Labs collected and sent; Complete Time: : [facility] 12/10 13:07 Order name: O2 Per Protocol; Complete Time: : [facility] 12/10 13:07 Order name: O2 Sat Monitoring; Complete Time: : [facility] 12/10 13:07 Order name: Urine Dipstick-Ancillary (obtain specimen) [facility] EC:36 Rate is 82 beats/min. Rhythm is regular. QRS Fern[place] is Normal. CT interval is normal. QRS leonides interval is normal. QT interval is normal. No Q waves. T waves are Normal. No ST changes noted. Clinical impression: Normal ECG and No evidence of ischemia. Interpreted by me. Reviewed by me. Administered Medications: : Drug: NS 0.9% 1000 ml Route: IV; Rate: 1 bolus; Site: left antecubital; trevizo Disposition Summary: 12/10/21 14:22 Discharge Ordered Location: Home leonides Problem: new leonides Symptoms: have improved leonides Condition: Stable leonides Diagnosis - Syncope Near leonides - Type 2 diabetes mellitus with hyperglycemia leonides - Fall on same level, unspecified leonides - Unspecified injury of head, initial encounter leonides - Heat exhaustion, unspecified leonides Followup: leonides - With: Private Physician - When: 48 Hours - Reason: Recheck today's complaints, Continuance of care, Re-evaluation by your physician Discharge Instructions: - Discharge Summary Sheet leonides - Near-Syncope leonides - Syncope leonides - Weakness leonides - Near-Syncope, [id number] leonides - Syncope, Kbvs-ad-Gtal leonides - Weakness, Udhl-ug-Eead leonides - Head Injury, Adult, Imzs-qg-Sotm leonides - Heat Exhaustion leonides Forms: - Medication Reconciliation Form leonides - Thank You Letter leonides - Antibiotic Education leonides - Prescription Opioid Use leonides Signatures: Dispatcher [employer] Surya Navarro MD MD cha Au-Stager, Heather, RN RN
[2021-12-10 15:20] VITALS: BP 107/65; TEMP 98.5; O2SAT 98
--- NOTE | 2021-12-12 12:54 | EKG ---
Test Date: 2021-12-10 Test Time: 13:12:34 [employer]: LATANYA MEASUREMENT RESULTS: Intervals: Rate: 82 IA: 160 QRSD: 84 QT: 376 QTc: 439 [place]: P: 38 IA: 160 QRS: 13 T: 31 INTERPRETIVE STATEMENTS: Normal sinus rhythm Normal ECG Compared to ECG 12/17/2019 21:04:08 Prolonged QT interval no longer present Electronically Signed On 12-12-21 12:52:49 CDT by Mirza Blas
== END 2021-12-10 15:15 | disposition home or self-care (01) ==
LOC: ER 12:54
DX: S09.90XA Unspecified injury of head, initial encounter (principal); T67.5XXA Heat exhaustion, unspecified, initial encounter; E11.65 Type 2 diabetes mellitus with hyperglycemia; W18.30XA Fall on same level, unspecified, initial encounter; Z91.018 Allergy to other foods; Z79.4 Long term (current) use of insulin
CPT/HCPCS: 93005; 85025; 80048; 36415; 83735; 85610; 80076; 84484; 83690; 83880; 70450; 72125; 71045; 99284; J7030

== ENCOUNTER 2022-01-07 20:24 | Emergency (ER) | payer OTHER ==
[2022-01-07] MEDS ORDERED: NA CHLORIDE 0.9% 1,000 ML ONE (22:06)
[2022-01-07] MEDS ORDERED: ONDANSETRON 4 MG/2 ML VIAL ONE (22:06)
[2022-01-07] MEDS ORDERED: MORPHINE 4 MG/ML SYR ONE ×2 (22:06→23:36)
[2022-01-07 22:18] LABS: Hematocrit 42.3 % (39.6-49.0); Lymphocytes % 17.8 % (15.3-44.8); MCV 83.1 fL (80-100); MPV 7.7 fL (7.6-11.3); RBC Red Blood Cell Count 5.09 M/uL (4.33-5.43)
[2022-01-07 22:35] LABS: Bilirubin Total 0.8 mg/dL (0.2-1.0); Potassium 3.7 mmol/L (3.5-5.1); Protein, Total 7.3 g/dL (6.4-8.2)
[2022-01-08] MEDS ORDERED: NA CHLORIDE 0.9% 100 ML ONE (00:54)
[2022-01-08] MEDS ORDERED: PIPERACIL/TAZO 3.375 GM VIAL IV ONE (00:55)
--- NOTE | 2022-01-08 01:31 | EDPHYS ---
Physician Documentation [facility] Name: Efren Burgess Age: 46 yrs Sex: Male : 1975 Arrival Date: 01/07/2022 Time: 20:36 Bed 18 Private MD: ED Physician Surya Umanzor HPI: 01/07 21:33 This 46 yrs old Male presents to ER via Ambulatory with complaints of [facility] Abdominal Pain. 21:33 The patient presents with abdominal pain. Onset: The symptoms/episode began/occurred jm acutely, today. The symptoms radiate to Associated signs and symptoms: Pertinent positives:. The symptoms are described as achy. This is a 46 year old male with no chronic medical conditions that presents to the ED with complaints of epigastric pain beginning around 1 pm today after eating azeri fries. Patient states he had a gastric bypass performed [place] [address] Mackey, at [facility]. Denies diarrhea. . Historical: - Allergies: 21:16 Kiwi (Actinidia Chinensis); vc1 21:16 Strawberries; vc1 - Home Meds: 21:16 None [Active]; vc1 - PMHx: 21:16 None; vc1 - PSHx: 21:16 Gastric bypass Jun 2020; vc1 - Immunization history:: Adult Immunizations up to date, Client reports receiving the Scott \\T\\ Scott single-dose vaccine. - Social history:: Smoking status: Patient denies any tobacco usage or history of. ROS: 21:33 Constitutional: Negative for fever, chills, and weight loss, Cardiovascular: Negative jmm for chest pain, palpitations, and edema, Respiratory: Negative for shortness of breath, cough, wheezing, and pleuritic chest pain. 21:33 Abdomen/GI: Positive for abdominal pain. 21:33 All other systems are negative. Exam: 21:33 Constitutional: This is a well developed, well nourished patient who is awake, alert, jmm and in no acute distress. Head/Face: atraumatic. Eyes: EOMI, no conjunctival erythema appreciated ENT: Moist Mucus Membranes Neck: Trachea midline, Supple Chest/axilla: Normal chest wall appearance and motion. Cardiovascular: Regular rate and rhythm. No edema appreciated Respiratory: Normal respirations, no respiratory distress appreciated 21:33 Back: Normal ROM Skin: General appearance color normal MS/ Extremity: Moves all extremities, no obvious deformities appreciated, no edema noted to the lower extremities Neuro: Awake and alert Psych: Behavior is normal, Mood is normal, Patient is cooperative and pleasant 21:33 Abdomen/GI: Inspection: abdomen appears normal, Bowel sounds: normal, Palpation: soft, moderate abdominal tenderness, in the epigastric area, right upper quadrant and left upper quadrant. Vital Signs: 21:12 Pulse 74; Resp 18; Temp 97.1; Pulse Ox 97% ; Weight 109.32 kg; Height 5 ft. 9 in. vc1 (175.26 cm); Pain 10/10; 21:18 BP 141 / 84; vc1 22:30 BP 134 / 68; Pulse 46; Resp 16; Temp 98.4; Pulse Ox 96% ; fu 23:32 BP 140 / 74; Pulse 88; Resp 20; Temp 98.6; Pulse Ox 100% on R/A; bh1 01/08 00:30 BP 126 / 88; Pulse 74; Resp 16; Pulse Ox 99% on R/A; fu 04:34 BP 126 / 69; Pulse 63; Resp 16; Temp 98.5(O); Pulse Ox 95% on R/A; fu 01/07 21:12 Body Mass Index 35.59 (109.32 kg, 175.26 cm) vc1 MDM: 01/07 21:33 Patient medically screened. [facility] 01/08 01:29 Data reviewed: vital signs, nurses notes. Counseling: I had a detailed discussion with [facility] the patient and/or guardian regarding: the historical points, exam findings, and any diagnostic results supporting the discharge/admit diagnosis, lab results, radiology results, the need to transfer to another facility. Transition of care: After a detail discussion of the patient's case, care is transferred to Surya Umanzor MD. ED course: I discussed the patient with Dr. Gill whom recommended transfer due to no GI. . 01/07 21:38 Order name: CBC with Diff; Complete Time: 22:25 [facility] 01/07 21:38 Order name: CMP; Complete Time: 22:46 [facility] 01/07 21:38 Order name: Lipase; Complete Time: 22:46 [facility] 01/07 21:38 Order name: CT Abd/Pelvis - IV Contrast Only [facility] 01/08 00:33 Order name: COVID-19 SARS RT PCR (Document "Date of Onset" if Symptomatic); Complete lp1 Time: 01:56 01/07 21:38 Order name: IV Saline Lock; Complete Time: 21:54 [facility] 01/07 21:38 Order name: Labs collected and sent; Complete Time: 21:54 [facility] Administered Medications: 01/07 22:18 Drug: NS 0.9% 1000 ml Route: IV; Rate: 1 bolus; Site: right antecubital; fu 23:31 Follow up: IV Status: Completed infusion; IV Intake: 1000ml [facility] 22:18 Drug: Zofran (Ondansetron) 4 mg Route: IVP; Site: right antecubital; fu 23:18 Follow up: Response: No adverse reaction fu 22:18 Drug: morphine 4 mg Route: IVP; Infused Over: 4 mins; Site: right antecubital; fu 23:31 Follow up: Response: Pain is decreased [facility] 22:19 CANCELLED (Duplicate Order): Zofran (Ondansetron) 2 mg IVP once; over 2 minutes fu 23:31 Drug: morphine 4 mg Route: IVP; Infused Over: 4 mins; Site: right antecubital; [facility] 23:31 Follow up: Response: No adverse reaction [facility] 01/08 01:01 Drug: Zosyn (piperacillin-tazobactam) 3.375 grams Route: IVPB; Infused Over: 60 mins; fu Site: right antecubital; 02:01 Follow up: Response: No adverse reaction fu 04:41 Drug: morphine 4 mg Route: IVP; Infused Over: 4 mins; Site: right antecubital; vc1 05:50 Follow up: Response: Pain is decreased fu 04:41 Drug: Zofran (Ondansetron) 4 mg Route: IVP; Site: right antecubital; vc1 05:50 Follow up: Response: Nausea is decreased fu 06:49 Drug: Dilaudid (HYDROmorphone) 1 mg Route: IVP; Site: right antecubital; fu 06:56 Follow up: Response: Medication administered at discharge. fu 06:49 Drug: Zofran (Ondansetron) 4 mg Route: IVP; Site: right antecubital; fu 06:55 Follow up: Response: Medication administered at discharge. fu 06:49 Drug: Lactated Ringers Solution 1000 ml Route: IV; Rate: 500 ml/hr; Site: right fu antecubital; 06:55 Follow up: Response: Medication administered at discharge. Disposition Summary: 01/08/22 01:31 Transfer Ordered Transfer Location: Other Acute Care Facility [facility] Reason: Higher level of care jmm Condition: Stable jmm Problem: new jmm Symptoms: have improved jmm Accepting Physician: Internal Medicine(01/08/22 06:57) fu Diagnosis - Acute cholecystitis jmm - Enlarged Common Bile Duct [facility] Forms: - Medication Reconciliation Form jm - SBAR form [facility] Signatures: Dispatcher [employer] EDSurya Bronson MD MD cha Mickail, Joel, PA PA [facility] Yossi Neal, RN RN Jeannine Noyola RN RN vc1 Nilda Bashir RN RN bh1 Corrections: (The following items were deleted from the chart) 01/07 22:19 21:38 Zofran (Ondansetron) 2 mg IVP once; over 2 minutes ordered. [facility] 01/08 06:57 01:31 Internal Medicine [facility]
--- NOTE | 2022-01-08 01:31 | ER ---
Nurse's Notes [facility] Name: Efren Burgess Age: 46 yrs Sex: Male : 1975 Arrival Date: 01/07/2022 Time: 20:36 Bed 18 Private MD: Diagnosis: Acute cholecystitis;Enlarged Common Bile Duct Presentation: 01/07 21:12 Chief complaint: Patient states: "About 1 pm I ate some fries (I had gastric bypass in vc1 Jun 2020), it feels like a bowel obstruction. It is really painful.". Coronavirus screen: Vaccine status: Patient reports receiving the 2nd dose of the covid vaccine. Scott\\T\\Scott. Ebola Screen: No symptoms or risks identified at this time. Initial Sepsis Screen: Does the patient meet any 2 criteria? No. Patient's initial sepsis screen is negative. Does the patient have a suspected source of infection? No. Patient's initial sepsis screen is negative. Risk Assessment: Do you want to hurt yourself or someone else? Patient reports no desire to harm self or others. Onset of symptoms was January 07, 2022 at 13:30. 21:12 Method Of Arrival: Ambulatory vc1 21:12 Acuity: AUGUSTUS 3 vc1 Historical: - Allergies: 21:16 Kiwi (Actinidia Chinensis); vc1 21:16 Strawberries; vc1 - Home Meds: 21:16 None [Active]; vc1 - PMHx: 21:16 None; vc1 - PSHx: 21:16 Gastric bypass Jun 2020; vc1 - Immunization history:: Adult Immunizations up to date, Client reports receiving the Scott \\T\\ Scott single-dose vaccine. - Social history:: Smoking status: Patient denies any tobacco usage or history of. Screenin:55 Abuse screen: Denies threats or abuse. Nutritional screening: No deficits noted. fu Tuberculosis screening: No symptoms or risk factors identified. Fall Risk None identified. Assessment: 22:00 Pain: Complains of pain in abdomen Pain does not radiate. Pain currently is 10 out of fu 10 on a pain scale. Pain began around 1300 today. Neuro: Level of Consciousness is awake, alert, obeys commands, Oriented to person, place, time, situation. GI: GI: pain with palpation. 22:50 General: Appears uncomfortable, Behavior is calm, cooperative, appropriate for age. fu 01/08 00:03 Reassessment: Patient and/or family updated on plan of care and expected duration. Pain fu level reassessed. Patient is alert, oriented x 3, equal unlabored respirations, skin warm/dry/pink. Patient states feeling better. 03:47 Reassessment: Report called to [facility] at [facility]. Questions asked were fu answered. 05:00 Reassessment: patient resting in bed, awaiting for transport to [facility]. fu 06:51 Reassessment: Reassessment: Patient left ED on stretcher. Transported by [facility] to [facility]. Vital Signs: 01/07 21:12 Pulse 74; Resp 18; Temp 97.1; Pulse Ox 97% ; Weight 109.32 kg; Height 5 ft. 9 in. vc1 (175.26 cm); Pain 10/10; 21:18 BP 141 / 84; vc1 22:30 BP 134 / 68; Pulse 46; Resp 16; Temp 98.4; Pulse Ox 96% ; fu 23:32 BP 140 / 74; Pulse 88; Resp 20; Temp 98.6; Pulse Ox 100% on R/A; bh1 01/08 00:30 BP 126 / 88; Pulse 74; Resp 16; Pulse Ox 99% on R/A; fu 04:34 BP 126 / 69; Pulse 63; Resp 16; Temp 98.5(O); Pulse Ox 95% on R/A; fu 01/07 21:12 Body Mass Index 35.59 (109.32 kg, 175.26 cm) vc1 ED Course: 01/07 20:36 Patient arrived in ED. ag3 21:16 Triage completed. vc1 21:16 Arm band placed on right wrist. vc1 21:27 Kirt Hermosillo PA is PHCP. jmm 21:27 Surya Umanzor MD is Attending Physician. jmm 21:27 Yossi Neal, SREE is Primary Nurse. fu 21:54 Lipase Sent. fu 21:54 CMP Sent. fu 21:54 CBC with Diff Sent. fu 21:55 Inserted saline lock: 20 gauge in right antecubital area, using aseptic technique. fu Blood collected. 23:28 CT Abd/Pelvis - IV Contrast Only In Process Unspecified. EDMS 23:32 No apparent distress. Awaiting lab results, Awaiting radiology results. [facility] 01/08 00:39 Awaiting: Attempted to initiate transfer with Ellen Brink [facility] at transfer center reports no GI services at this facility. 00:46 Awaiting: Notified that Ellen [facility] and Ellen [facility] both at capacity. lp1 01:00 Initiated transfer of Pt. to [facility], spoke to Jennifer Rasheed. wm 01:05 COVID swab sent to lab. fu 01:10 Awaiting: Initiated transfer with Jennifer at [facility], will call back with lp1 availability. 01:35 Bed in low position. Call light in reach. Pulse ox on. NIBP on. fu 01:35 No provider procedures requiring assistance completed. fu 02:19 Pt. accepted for transfer by Sanket Pires at 01:59, per Jennifer Rasheed. 05:01 Warm blanket given. fu 06:51 Patient transferred, IV remains in place. fu Administered Medications: 01/07 22:18 Drug: NS 0.9% 1000 ml Route: IV; Rate: 1 bolus; Site: right antecubital; fu 23:31 Follow up: IV Status: Completed infusion; IV Intake: 1000ml [facility] 22:18 Drug: Zofran (Ondansetron) 4 mg Route: IVP; Site: right antecubital; fu 23:18 Follow up: Response: No adverse reaction fu 22:18 Drug: morphine 4 mg Route: IVP; Infused Over: 4 mins; Site: right antecubital; fu 23:31 Follow up: Response: Pain is decreased [facility] 22:19 CANCELLED (Duplicate Order): Zofran (Ondansetron) 2 mg IVP once; over 2 minutes fu 23:31 Drug: morphine 4 mg Route: IVP; Infused Over: 4 mins; Site: right antecubital; [facility] 23:31 Follow up: Response: No adverse reaction [facility] 01/08 01:01 Drug: Zosyn (piperacillin-tazobactam) 3.375 grams Route: IVPB; Infused Over: 60 mins; fu Site: right antecubital; 02:01 Follow up: Response: No adverse reaction fu 04:41 Drug: morphine 4 mg Route: IVP; Infused Over: 4 mins; Site: right antecubital; vc1 05:50 Follow up: Response: Pain is decreased fu 04:41 Drug: Zofran (Ondansetron) 4 mg Route: IVP; Site: right antecubital; vc1 05:50 Follow up: Response: Nausea is decreased fu 06:49 Drug: Dilaudid (HYDROmorphone) 1 mg Route: IVP; Site: right antecubital; fu 06:56 Follow up: Response: Medication administered at discharge. fu 06:49 Drug: Zofran (Ondansetron) 4 mg Route: IVP; Site: right antecubital; fu 06:55 Follow up: Response: Medication administered at discharge. fu 06:49 Drug: Lactated Ringers Solution 1000 ml Route: IV; Rate: 500 ml/hr; Site: right fu antecubital; 06:55 Follow up: Response: Medication administered at discharge. fu Medication: 00:03 VIS not applicable for this client. fu Intake: 01/07 23:31 IV: 1000ml; Total: 1000ml. [facility] Outcome: 01/08 01:31 ER care complete, transfer ordered by MD. rust 06:56 Transferred by ground EMS fu 06:56 Condition: improved 06:56 Instructed on the need for transfer. 06:57 Patient left the ED. fu Signatures: Dispatcher [employer] EDMS Kirt Hermosillo PA PA jmm Pena, Laura RN RN lp1 Yossi Neal RN RN Christina Hayes Marilyn Santa Vanessa RN RN vc1 Nilda Bashir RN RN 1 Corrections: (The following items were deleted from the chart) 00:04 01/07 23:31 Response: No adverse reaction 1 01/08 05:48 04:34 BP 126 / 69; Pulse 63bpm; Resp 16bpm; Pulse Ox 95% RA; vc1 fu
[2022-01-08] MEDS ORDERED: MORPHINE 4 MG/ML SYR ONE (04:41)
[2022-01-08] MEDS ORDERED: ONDANSETRON 4 MG/2 ML VIAL ONE ×2 (04:41→06:50)
[2022-01-08] MEDS ORDERED: Ringers Lactate 1,000 ML IV ONE (06:50)
[2022-01-08] MEDS ORDERED: HYDROMORPHONE HCL 1 MG/ML INJ ONE (06:50)
[2022-01-08 07:11] VITALS: BP 126/69; TEMP 98.5; O2SAT 95
--- NOTE | 2022-01-08 19:06 | RAD REPORT ---
EXAM DESCRIPTION: CT - Abdomen Pelvis W Contrast - 01/08/2022 7:11 am CLINICAL HISTORY: 46-year-old male with abdominal pain and vomiting. COMPARISON: None. TECHNIQUE: CT of the abdomen and pelvis was performed following intravenous administration of contra st. Oral contrast was not administered. Multiplanar reformatted images were provided. This exam was p erformed according to our departmental dose optimization program which includes use of automated expo sure control, adjustment of the mA and/or kV according to patient size and/or use of iterative recons truction technique. FINDINGS: Chest: Evaluation through the lung bases reveals no focal opacity, pleural effusion or pne umothorax. Heart size is within normal limits. No pericardial effusion. Abdomen and pelvis: The liver, pancreas, spleen, bilateral kidneys and bilateral adrenal glands are within normal limits. Postoperative changes of the stomach are identified compatible with Filemon-en-Y gastric bypass surgery. Exophytic RIGHT renal cyst measuring 10 Hounsfield units and up to 9 mm compatible with simple renal cyst. Additional cortically based superior pole cyst subcentimeter in size, too small to further hillary acterize. Enlarged appearance of the gallbladder measuring up to 9.7 cm. No gallbladder wall thickening, howeve r trace pericholecystic stranding is present. The common bile duct is enlarged measuring up to 10 mm. Further evaluation with RIGHT upper quadrant sonography may be considered. Small enhancing lymph nod e is present at the level of the mikey hepatis, not pathologically enlarged by CT measurement criteri a, may be reactive in etiology. The vessels are patent and normal in caliber. No abdominopelvic lymph nodes are noted to be pathologically enlarged by CT measurement criteria. The bowel is within normal limits without abnormal bowel wall thickness or bowel dilation. No free air. No free abdominopelvic fluid collections. The appendix is within normal limits. The osseous structures are within normal limits. IMPRESSION: Enlarged appearance of the gallbladder measuring up to 9.7 cm. No gallbladder wall thick ening, however trace pericholecystic stranding is present. The common bile duct is enlarged measuring up to 10 mm. Further evaluation with RIGHT upper quadrant sonography may be considered. Electronically signed by: Jessica Moncada MD 01/08/2022 12:03 AM CDT Due to temporary technical issues with the PACS/Fluency reporting system, reports are being signed by the in house radiologists without review as a courtesy to insure prompt reporting. The interpreting radiologist is fully responsible for the content of the report.
== END 2022-01-08 06:57 ==
LOC: ER 20:24
DX: K81.0 Acute cholecystitis (principal); K83.8 Other specified diseases of biliary tract; Z20.822 Contact with and (suspected) exposure to COVID-19; Z91.018 Allergy to other foods; Z98.84 Bariatric surgery status
CPT/HCPCS: 96361; 85025; 36415; 83690; 80053; 74177; 96375; 96374; 99285; U0003; Q9967; J2543; J1170; J7120; J7030; J2405 ×3